=== PATIENT | male | born 1950 | race Caucasian/White ===

== ENCOUNTER 2021-07-01 10:22 | Outpatient (CLI) | payer OTHER, SELFPAY ==
--- NOTE | 2021-07-03 12:14 | W.PFT ---
Date of service: 07/01/21 Time of Service: 22:53 Pulmonary Function Test Result Indications: COPD Total duration of 7 hours 33 minutes TEZ equals 1.9 Baseline SPO2 is 93% Minutes spent under 88% equals 0 Average pulse equals 63 Impression: No significant desaturations. Normal nocturnal oximetry.
== END 2021-07-01 10:23 | disposition home or self-care (01) ==
LOC: RT 10:25
PROVIDERS: PCP Family Medicine; Visit Provider Student in an Organized Health Care Education/Training Program
DX: J96.91 Respiratory failure, unspecified with hypoxia (principal); J43.2 Centrilobular emphysema
CPT/HCPCS: 94762

== ENCOUNTER 2021-12-25 12:57 | Outpatient (CLI) | payer OTHER, SELFPAY ==
[2021-12-25 13:40] LABS: BE 15 mmol/L (-2-3); HCO3 39 mmol/L (22-26); pCO2 55 mmHg (35-45); pH 7.45 (7.35-7.45); pO2 46 mmHg (80-105); sO2 83 % (95-98); tCO2 34 mmol/L (23-27)
[2021-12-25 13:51] LABS: FIO2 36 %; FIO2L 4l L; Site Right Radial
== END 2021-12-25 12:58 | disposition home or self-care (01) ==
LOC: RT 12:58
PROVIDERS: PCP Nurse Practitioner Primary Care; Visit Provider Student in an Organized Health Care Education/Training Program
DX: J43.2 Centrilobular emphysema (principal); J96.91 Respiratory failure, unspecified with hypoxia
CPT/HCPCS: 82805; 36600

== ENCOUNTER 2023-07-10 02:47 | Outpatient (CLI) | payer OTHER, SELFPAY ==
[2023-07-10] MEDS: Levalbuterol HFA 15 GM INH 4 PUFF IH (11:12)
[2023-07-10] MEDS: Inhaler, Assist Device 1 EACH MC (11:12)
--- NOTE | 2023-07-20 11:58 | W.PFT ---
Date of service: 07/10/23 Time of Service: 10:01 Pulmonary Function Test Result Indications: COPD Interpretation Spirometry: There is very severe airflow limitation. There is no significant bronchodilator response. Lung Volumes: There is hyperinflation and air trapping. Diffusion Capacity: Severely reduced diffusion Airway Pressure: Increased airways resistance Impression Very severe obstructive disease with air trapping, increased airways resistance and reduced diffusion, consistent with COPD with emphysema Clinical Correlation therefore is recommended.
== END 2023-07-10 02:48 | disposition home or self-care (01) ==
LOC: RT 02:47
PROVIDERS: PCP Nurse Practitioner Primary Care; Visit Provider Physician Assistant Surgical
DX: J44.9 Chronic obstructive pulmonary disease, unspecified (principal)
CPT/HCPCS: 94060; 94726; 94729

== ENCOUNTER 2023-11-21 17:26 | Emergency (ER) | payer OTHER, SELFPAY ==
[2023-11-21] VITALS (10 sets, daily range): BP systolic 153–177; BP diastolic 75–78; PULSE 101–108; RESP 19–24; TEMP 36.4; O2SAT 91–98
--- NOTE | 2023-11-21 17:45 | DI.RAD_ITS ---
Exam(s) XR FOREARM RT EXAM: XR FOREARM RT CLINICAL HISTORY: Swelling, Dorsal side Hx of Nec Fasc. TECHNIQUE: 2D digital imaging was performed. COMPARISON: No exams were available for comparison FINDINGS: Two views. There is dorsal soft tissue swelling in the proximal forearm. No radiopaque foreign body. No evidence of fracture of the radius and ulna. No swelling of the olecranon bursa. No elbow joint effusion. IMPRESSION: Posterior upper forearm soft tissue swelling. No fractures evident. DATA REPOSITORY: RADIATION DOSE DELIVERED:
--- NOTE | 2023-11-21 17:50 | ED.GENADUL_ITS ---
HPI General Mode of arrival: wheelchair . Date/Time Provider Initiated Documentation: 11/21/23 17:29 . Limitations to Documentation: no limitations . Information obtained by: patient, RN/MD, RN notes reviewed and old records reviewed . HPI Narrative: 73-year-old male with a past medical history of COPD who is on 4 L nasal cannula, necrotizing fasciitis with a fasciotomy to his right forearm approximately 10 years ago presents with some right dorsal forearm swelling which he noticed this morning. He denies any tenderness. It is warm to touch, he does have some dry skin and eczema over the area which she reports that he may have accidentally scratched. He denies any fever or chills. He is slightly tachycardic with a heart rate of 106 upon arrival his temperature is slightly low at 36.4. Related Data Home Medications Medication Instructions Recorded Confirmed inhalational spacing device ##1 09/29/14 08/21/23 (Aerochamber Plus Flow-Vu) ibuprofen 600 mg tablet 600 mg PO QID PRN PRN 04/15/16 08/21/23 Oxygen #1 ea 06/10/21 08/21/23 albuterol sulfate 90 mcg/actuation 2 puff inhalation Q6H PRN 06/10/21 08/21/23 aerosol inhaler hydrochlorothiazide 25 mg tablet 25 mg PO QAM 06/10/21 08/21/23 ipratropium 0.5 mg-albuterol 3 mg 3 ml inhalation Q6H PRN 06/10/21 08/21/23 (2.5 mg base)/3 mL nebulization soln mometasone-formoterol HFA 200 2 puff inhalation BID 12/25/21 08/21/23 mcg-5 mcg/actuation aerosol inhaler (Dulera) albuterol sulfate 2.5 mg/3 mL 2.5 mg inhalation Q6H 04/03/23 08/21/23 (0.083 %) solution for nebulization clobetasol 0.05 % topical cream 1 applic topical DAILY PRN 04/03/23 08/21/23 diltiazem HCl 30 mg tablet 60 mg PO TID 08/21/23 08/21/23 cephalexin 500 mg tablet 500 mg PO BID 7 days #14 tabs 11/21/23 Previous Rx's Medication Instructions Recorded inhalational spacing device ##1 09/29/14 (Aerochamber Plus Flow-Vu) ibuprofen 600 mg tablet 600 mg PO QID PRN PRN 04/15/16 cephalexin 500 mg tablet 500 mg PO BID 7 days #14 tabs 11/21/23 Allergies Allergy/AdvReac Type Severity Reaction Status Date / Time No Known Allergies Allergy Unverified 11/21/23 17:34 General Stated Complaint: GenMedical ATA: 3 Review of Systems All systems reviewed & are unremarkable except as noted in HPI and below Constitutional Constitutional: Denies chills and Denies fever(s) Musculoskeletal Musculoskeletal: Reports as per HPI and Reports other (Arm swelling) Integumentary/Breasts Skin/Breast: Reports as per HPI, Reports rash (Eczema), Reports skin swelling and Reports sores Exam Extrem Right upper extremity: elbow/forearm Details: swelling Location: of the proximal forearm (Volar surface), normal ROM, warmth and distal pulses intact Elbow/forearm/wrist images: 2 1. Swelling noted 5x5cm approximately. Course Vital Signs Vital signs: Vital Signs Temperature 36.4 C L 11/21/23 17:28 Pulse 106 H 11/21/23 17:28 Respiratory Rate 20 11/21/23 17:28 Blood Pressure 153/78 H 11/21/23 17:28 Pulse Oximetry 96 11/21/23 17:28 Temperature 36.4 C L 11/21/23 17:39 Temperature Source Temporal Artery Scan 11/21/23 17:39 Pulse 106 H 11/21/23 17:39 Respiratory Rate 20 11/21/23 17:39 Respiratory Effort Normal 11/21/23 17:39 Respiratory Depth Normal 11/21/23 17:39 Respiratory Pattern Normal 11/21/23 17:39 Blood Pressure 153/78 H 11/21/23 17:39 Blood Pressure Position Sitting 11/21/23 17:39 Pulse Oximetry 96 11/21/23 17:39 Oxygen Delivery Method Room Air 11/21/23 17:39 Oxygen Flow Rate 0 11/21/23 17:39 Medical Decision Making 73-year-old male with a past medical history of COPD who is on 4 L nasal cannula, necrotizing fasciitis with a fasciotomy to his right forearm approximately 10 years ago presents with some right dorsal forearm swelling which he noticed this morning. He denies any tenderness. It is warm to touch, he does have some dry skin and eczema over the area which she reports that he may have accidentally scratched. He denies any fever or chills. He is slightly tachycardic with a heart rate of 106 upon arrival his temperature is slightly low at 36.4. No evidence of leukocytosis, does have slightly elevated neutrophils 8.29, lactate within normal limits. X-ray shows no air does show some soft tissue swelling. Differential diagnosis includes not limited to abscess, hematoma, cellulitis. Due to patient's history of necrotizing fasciitis with fasciotomy I did offer a CT with IV contrast to further eval the area. They declined at this time. I also did discuss with them the option for conservative treatment including Wayne wrap ice pack and empirical antibiotics and watchful waiting. They opted for this option and follow-up with their PCP. Discussed strict return instructions and home care they verbalized understanding. Lab Data Lab results reviewed: Yes I reviewed the patient's lab results. Labs: Laboratory Tests Range/Units 11/21/23 18:05 WBC (4.4-10.8) 10^3/uL 10.61 RBC (4.36-5.78) 10^6/uL 4.76 Hgb (13.5-17.5) g/dL 14.4 Hct (40.0-50.0) % 42.7 MCV (80-95) fL 90 MCH (27.0-33.0) pg 30.3 MCHC (32.0-36.0) % 33.7 RDW (11.8-14.1) % 12.1 Plt Count (130-400) 10^3/uL 264 MPV (8.0-11.0) fL 9.9 Immature Gran % 0.3 Neutrophils % 78.0 Lymphocytes % 10.5 Monocytes % 8.9 Eosinophils % 1.9 Basophils % 0.4 Nucleated RBC % (0.0-0.3) % 0.0 Absolute Neutrophils (1.2-6.7) 10^3/uL 8.29 H Absolute Lymphocytes (1.2-3.4) 10^3/uL 1.11 L Absolute Monocytes (0.1-0.8) 10^3/uL 0.94 H Absolute Eosinophils (0.0-0.7) 10^3/uL 0.20 Absolute Basophils (0.0-0.2) 10^3/uL 0.04 VBG Lactate (0.6-1.4) mmol/L 1.1 Sodium (136-145) mmol/L 138 Potassium (3.5-5.1) mmol/L 3.7 Chloride (98-107) mmol/L 96 L Carbon Dioxide (21.0-32.0) mmol/L 37.3 H Anion Gap (3-11) mmol/L 4.7 BUN (7-18) mg/dL 17 Creatinine (0.70-1.30) mg/dL 1.1 Est GFR (CKD-EPI 2020) (mL/min/1.73m2) 71.32 Glucose (74-106) mg/dL 110 H Calcium (8.5-10.1) mg/dL 9.5 Magnesium (1.8-2.4) mg/dL 1.9 Total Bilirubin (0.2-1.0) mg/dL 0.5 AST (15-37) U/L 16 ALT (16-63) U/L 20 Alkaline Phosphatase (46-116) U/L 119 H Total Protein (6.4-8.2) g/dL 9.2 H Albumin (3.4-5.0) g/dL 4.0 Quality:SDOH Health Related Social Needs: 2 No Data to Display PFSH All Active Problems (Updated 11/21/23 @ 18:59 by Shruthi Singleton NP) Cellulitis of forearm, right (Acute) Swelling of soft tissue of forearm (Acute) Deviated septum (Acute) Respiratory failure with hypoxia (Acute) Pulmonary nodules (Acute) COPD (chronic obstructive pulmonary disease) (Chronic) Alcohol abuse, uncomplicated (Acute) Tinnitus, bilateral (Acute) Sensorineural hearing loss (SNHL), bilateral (Acute) Intrinsic (allergic) eczema (Acute) Essential hypertension (Acute) Spontaneous pneumothorax (Acute) Medical History Solitary pulmonary nodule Social History Smoking/Tobacco Use Status: Former Tobacco Use Quit Date: 03/19/16 Smoking risk assessment performed?: Yes Alcohol Intake: former Year quit: 2016 Drug use: Never Substance use type: does not use Current gender identity: male Additional Social history: History of pulm nodule -quit smokoing 2016- annual CT until at least 76- last was in 06/2020 Discharge Plan Disposition Patient Disposition: Home Condition: Stable Discharge Details Clinical Impression: Swelling of soft tissue of forearm, Cellulitis of forearm, right Primary Care Provider: Radha Smith ED Provider: Shruthi Singleton Home Meds and New Rx's Prescriptions: New cephalexin 500 mg tablet 500 mg PO BID 7 Days Qty: 14 0RF Continued Dulera 200-5 mcg/actuation HFA aerosol inhaler 2 puff inhalation BID ipratropium-albuterol 0.5 mg-3 mg(2.5 mg base)/3 mL solution for nebulization 3 ml inhalation Q6H PRN albuterol sulfate 90 mcg/actuation HFA aerosol inhaler 2 puff inhalation Q6H PRN hydrochlorothiazide 25 mg tablet 25 mg PO QAM (DME) Oxygen Tank See Rx Instructions .ROUTE .MEDSUPPLY Qty: 1 Rx Instructions: As directed,On cont O2 at 3L - up to 4L when on a mask. albuterol sulfate 2.5 mg /3 mL (0.083 %) solution for nebulization 2.5 mg inhalation Q6H clobetasol 0.05 % cream 1 applic topical DAILY PRN diltiazem HCl 30 mg tablet 60 mg PO TID (DME) Aerochamber Plus Flow-Vu 1 EACH spacer 1 ea Miscellaneous DIRECTED Qty: 1 0RF ibuprofen 600 MG tablet 600 mg PO QID PRN PRN0RF Discharge Instructions Instructions: Cellulitis (ED) Additional Instructions: This could be a large bruise but with your history, we will treat you with antibiotics to prevent infection. You may apply an Wayne wrap daily for the next few days ice it up to 3 times daily. Continue to observe the area return for any worsening swelling, redness, red streaks up your arm, body aches fever chills or any concerns. Please take the antibiotic twice a day with yogurt or probiotic as directed. Follow up with primary care provider in 3-5 days. Return to ED sooner if any worsening or concerns. Increase oral fluids. Referrals: Krystal Lindsey [NURSE PRACTITIONER] - 3 days Discharge Data Discharge Date/Time-TO BE ENTERED AT DEPARTURE: 11/21/23 19:11
[2023-11-21 18:10] LABS: Lactate 1.1 mmol/L (0.6-1.4)
[2023-11-21 18:13] LABS: Abs Immature Grans 0.03 10^3/uL (0.0-0.06); Absolute Basophil Count 0.04 10^3/uL (0.0-0.2); Absolute Lymphocyte Count 1.11 10^3/uL (1.2-3.4); Absolute Monocyte Count 0.94 10^3/uL (0.1-0.8); Absolute Neutrophil Count 8.29 10^3/uL (1.2-6.7); Basophils % 0.4; Eosinophils % 1.9; HCT 42.7 % (40.0-50.0); HGB 14.4 g/dL (13.5-17.5); Immature Grans % 0.3; Lymphocytes % 10.5; MCH 30.3 pg (27.0-33.0); MCHC 33.7 % (32.0-36.0); MCV 90 fL (80-95); MPV 9.9 fL (8.0-11.0); Monocytes % 8.9; Platelet Count 264 10^3/uL (130-400); RBC 4.76 10^6/uL (4.36-5.78); RDW 12.1 % (11.8-14.1); RDW-SD 40.3 fL; WBC 10.61 10^3/uL (4.4-10.8)
[2023-11-21 18:28] LABS: ALT 20 U/L (16-63); AST 16 U/L (15-37); Alkaline Phosphatase 119 U/L (46-116); Anion Gap 4.7 mmol/L (3-11); BUN 17 mg/dL (7-18); Bilirubin, Total 0.5 mg/dL (0.2-1.0); CO2 37.3 mmol/L (21.0-32.0); CREATININE 1.1 mg/dL (0.70-1.30); Calcium 9.5 mg/dL (8.5-10.1); Chloride 96 mmol/L (98-107); Estimated GFR 71.32 (mL/min/1.73m2); Glucose 110 mg/dL (74-106); Magnesium 1.9 mg/dL (1.8-2.4); Potassium 3.7 mmol/L (3.5-5.1); Sodium 138 mmol/L (136-145); Total Protein 9.2 g/dL (6.4-8.2)
[2023-11-21] MEDS: Cephalexin 500 MG CAP, 2 CAPS/BTL PO (19:10)
[2023-11-21] MEDS: Cephalexin 500 MG CAP PO (19:10)
== END 2023-11-21 19:11 | disposition home or self-care (01) ==
PROVIDERS: Emergency Provider Registered Nurse Emergency; PCP Nurse Practitioner Adult Health
DX: L03.113 Cellulitis of right upper limb (principal); J44.9 Chronic obstructive pulmonary disease, unspecified; Z87.891 Personal history of nicotine dependence; Z99.81 Dependence on supplemental oxygen
CPT/HCPCS: 80053; 99284; 73090; 83605; 83735; 85025; 99283

== ENCOUNTER 2025-02-18 14:42 | Inpatient (IN) | payer OTHER, MEDICARE, SELFPAY ==
[2025-02-18] VITALS (25 sets, daily range): BP systolic 84–170; BP diastolic 72–93; PULSE 107–123; RESP 10–33; TEMP 36.2–36.9; O2SAT 78–92
--- NOTE | 2025-02-18 14:45 | DI.RAD_ITS ---
Exam(s) XR PELVIS AP XR FEMUR RT EXAM: XR FEMUR RT CLINICAL HISTORY: right hip pain. TECHNIQUE: 2D digital imaging was performed. AP and lateral views of the femur. AP view of the pel vis COMPARISON: CR XR PELVIS AP from 02/18/2025 FINDINGS: BONES: Subcapital fracture of the right femur. There is some impaction and several small comminuted fragments. The remainder of the pelvis as well as distal femur appear intact. No bony destructive l esion is seen. JOINTS: Visualized portion of knee and hip joints are unremarkable. SOFT TISSUE: Normal. IMPRESSION: Subcapital fracture of the right femur with some impaction and few comminuted fragments. DATA REPOSITORY: RADIATION DOSE DELIVERED:
--- NOTE | 2025-02-18 14:55 | W.ED.GENAD ---
Discharge Plan Disposition Patient Disposition: Admit to [facility] Condition: Stable Discharge Details Chief Complaint: Fall/Non TraumaCriteria Clinical Impression: Fracture of right hip Admit Date/Time: 02/18/25 18:29 Admit Provider: Umm Reed Attending Provider: Umm Reed Primary Care Provider: Umm Reed ED Provider: Yogesh Vega Mode of arrival: EMS. Date/Time Provider Initiated Documentation: 02/18/25 14:46. Limitations to Documentation: no limitations. Information obtained by: patient. History of Present Illness 74 year old M presents to the emergency department with the chief complaint of right hip pain, described as moderate, Quality is described as aching, Patient reports no radiation. Patient started experiencing this hour(s) (1) and it has been constant. No relieving factors improve symptom(s), No exacerbating factors reported . Patient notes no other symptoms.. Patient did receive the following treatments prior to arrival, none Related Data Home Medications ?Medication ?Instructions ?Recorded ?Confirmed inhalational spacing device ##1 09/29/14 02/18/25 (Aerochamber Plus Flow-Vu) Oxygen #1 ea 06/10/21 02/18/25 albuterol sulfate 90 mcg/actuation 2 puff inhalation Q6H PRN 06/10/21 02/18/25 aerosol inhaler hydrochlorothiazide 25 mg tablet 25 mg PO QAM 06/10/21 02/18/25 ipratropium 0.5 mg-albuterol 3 mg 3 ml inhalation Q6H PRN 06/10/21 02/18/25 (2.5 mg base)/3 mL nebulization soln albuterol sulfate 2.5 mg/3 mL 2.5 mg inhalation Q6H 04/03/23 02/18/25 (0.083 %) solution for nebulization clobetasol 0.05 % topical cream 1 applic topical DAILY PRN 04/03/23 02/18/25 diltiazem HCl 30 mg tablet 60 mg PO TID 08/21/23 02/18/25 mometasone-formoterol HFA 200 2 puff inhalation BID #13 grams 11/25/24 02/18/25 mcg-5 mcg/actuation aerosol inhaler (Dulera) tiotropium bromide 2.5 2 inh inhalation DAILY #4 grams 11/25/24 02/18/25 mcg/actuation mist for inhalation (Spiriva Respimat) citalopram 40 mg tablet 40 mg PO ONCE #30 tabs 01/31/25 02/18/25 lorazepam 1 mg tablet 1 mg PO Q4H PRN anxiety, dyspnea, 01/31/25 02/18/25 nausea #30 tabs morphine concentrate 100 mg/5 mL See Rx Instructions PO Q1H PRN #30 01/31/25 02/18/25 (20 mg/mL) oral solution mL polyethylene glycol 3350 17 17 g PO DAILY #476 grams 01/31/25 02/18/25 gram/dose oral powder (Miralax) sennosides 8.6 mg tablet (senna) 8.6 mg PO BID #60 tabs 01/31/25 02/18/25 Previous Rx's ?Medication ?Instructions ?Recorded inhalational spacing device ##1 09/29/14 (Aerochamber Plus Flow-Vu) mometasone-formoterol HFA 200 2 puff inhalation BID #13 grams 11/25/24 mcg-5 mcg/actuation aerosol inhaler (Dulera) tiotropium bromide 2.5 2 inh inhalation DAILY #4 grams 11/25/24 mcg/actuation mist for inhalation (Spiriva Respimat) citalopram 40 mg tablet 40 mg PO ONCE #30 tabs 01/31/25 lorazepam 1 mg tablet 1 mg PO Q4H PRN anxiety, dyspnea, 01/31/25 nausea #30 tabs morphine concentrate 100 mg/5 mL See Rx Instructions PO Q1H PRN #30 01/31/25 (20 mg/mL) oral solution mL polyethylene glycol 3350 17 17 g PO DAILY #476 grams 01/31/25 gram/dose oral powder (Miralax) sennosides 8.6 mg tablet (senna) 8.6 mg PO BID #60 tabs 01/31/25 Allergies Allergy/AdvReac Type Severity Reaction Status Date / Time No Known Allergies Allergy Unverified 11/21/23 17:34 General Stated Complaint: Fall/Non TraumaCriteria ATA: 3 Review of Systems All systems reviewed & are unremarkable except as noted in HPI and below Constitutional Constitutional: Denies chills, Denies fever(s) and Denies weakness Cardiovascular Cardiovascular: Denies chest pain Respiratory Respiratory: Denies cough Gastrointestinal Gastrointestinal: Denies abdominal pain, Denies nausea and Denies vomiting Neurologic Neurologic: Denies weakness Psychiatric Psychiatric: Denies depression Exam Const Orientation: alert [facility] Head: normal to inspection Ears: external ears normal General nose exam: external nose normal Mouth: moist mucous membranes Eyes General: appearance normal, both eyes and all related structures Neck Neck: normal visual inspection Resp Effort & Inspection: normal respiratory effort and able to speak in complete sentences Cardio Rate: regular rate Skin General skin exam: no rashes or lesions noted Neuro General: patient alert and patient oriented x3 Extrem General: capillary refill normal Psych Mental Status: mental status grossly normal Course Vital Signs Vital signs: Vital Signs Temperature 36.9 C 02/18/25 14:42 Pulse 123 H 02/18/25 14:42 Respiratory Rate 33 H 02/18/25 14:42 Blood Pressure 170/93 H 02/18/25 14:42 Pulse Oximetry 88 L 02/18/25 14:42 Temperature 36.9 C 02/18/25 14:42 Temperature Source Oral 02/18/25 14:42 Pulse 123 H 02/18/25 14:42 Respiratory Rate 33 H 02/18/25 14:42 Blood Pressure 170/93 H 02/18/25 14:42 Blood Pressure Position Supine 02/18/25 14:42 Pulse Oximetry 88 L 02/18/25 14:42 Oxygen Delivery Method Nasal Cannula 02/18/25 14:42 Oxygen Flow Rate 2 02/18/25 14:42 Pain Level 2 02/18/25 14:42 Medical Decision Making 74-year-old male who is on hospice for COPD comes in after he states he got dizzy and fell over landing on his right hip. He denies any loss of consciousness and denies any chest pain, he is on baseline oxygen and denies any increased work of breathing from baseline. He localizes the pain to the right hip. He has tenderness in this area and has his hip flexed. He has intact distal sensation and cap refill. I discussed with him goals of care and his main goal is to be comfortable but he would also like to have x-rays done to evaluate for possible fractures. Will order Dilaudid and Toradol pelvis and right femur x-ray and reassess. X-ray confirms right hip fracture. Patient is on hospice, I discussed results with him and at this time he currently does not want to have any surgical intervention. Their house is not set up for his current injury as they do not have a hospital bed. I discussed the case with on-call hospice provider Dr. Reed who plans to admit for pain control until hospice services can provide adequate resources for further living situation. Differential Diagnosis Differential Diagnosis: Fracture, contusion Medical Records Medical records reviewed: Yes I reviewed the patient's medical records. Quality:SDOH Health Related Social Needs: No Data to Display PFSH All Active Problems (Updated 02/18/25 @ 21:20 by Yogesh Vega MD) Fracture of right hip (Acute) Pain (Acute) Closed right hip fracture (Acute) impacted comminuted right femoral neck fracture Goals of care, counseling/discussion (Acute) Dyspnea on minimal exertion (Acute) Oxygen dependent (Acute) Hospice care (Acute) Deviated septum (Acute) Respiratory failure with hypoxia (Chronic) Pulmonary nodules (Acute) COPD (chronic obstructive pulmonary disease) (Chronic) Tinnitus, bilateral (Acute) Sensorineural hearing loss (SNHL), bilateral (Acute) Intrinsic (allergic) eczema (Acute) Essential hypertension (Acute) Spontaneous pneumothorax (Acute) Medical History Solitary pulmonary nodule Social History Smoking/Tobacco Use Status: Former Tobacco Use Quit Date: 03/19/16 Tobacco: How many years used: 45 Second Hand Exposure: Yes (not currently, history of) Smoking risk assessment performed?: Yes Alcohol Intake: current Alcohol Intake frequency: 0-2 drinks per day Alcohol type: wine Drug use: Never Substance use type: does not use Caregiver/Support person: Yes Household members: significant other Housing: house Number of Children: 3 Communication Needs: Hard of Hearing Do you need help understanding health information?: Rarely 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 Pets and animals: No (favorite cat recently (winter 2024)) Do you think of yourself as: straight/heterosexual Current gender identity: male What is your relationship status?: living with partner Panel score (0-1 are the most socially isolated patients): 1 What type of physical activity do you participate in: none Special rosie needs: No Agree to transfusion: No Seatbelt use: always Working smoke detector in home: Yes Fire extinguisher in home: Yes Do you feel safe at home: Yes Do you feel safe in your relationship?: Yes Additional Social history: Lorne and Roberto, his SO, have been together for decades. They have children together. She works out of the home most of the time. Most of the time, Lorne stays on the second floor. he goes down approx once per 5 days to have his hair washed. He gets very dyspneic with any activity. He cannot walk from his bed to the bathroom without stopping to rest. He struggles to get back up the stairs due to his dyspnea, even with oxygen in place. He and Roberto are considering getting ; he is afraid of how it will affect his [employer] benefits if they . He is committed to her and he to him. PAWSS Have you Been Recently Intoxicated or Drunk Within the Last 30 days?: Yes Have you Ever Experienced Previous Episodes of Alcohol Withdrawal?: Yes Have you ever Experienced Withdrawal Seizures?: No Have you ever Experienced Delirium Tremens(DT)s?: No Have you ever undergone Alcohol Rehabilitation Treatment (i.e, inpt ot outpatient treatment programs)?: No Have you ever Experienced Blackouts?: No Have you ever Combined Alcohol with other Downers within the last 90 days?: Yes Have you ever Combined Alcohol with any other Substance of Abuse during the last 90 days?: Yes Positive Blood Alcohol level on Presentation? [PCS.BAL]: No Evidence of Increased Autonomic Activity (i.e. HR>120, tremor, sweating, agitation, nausea)?: Yes Result: 5
[2025-02-18] MEDS: HYDROmorphone 2 MG/ML SYR IM ×2 (15:00→15:40)
[2025-02-18] MEDS: Ketorolac 15 MG/ML VIAL IM (15:01)
--- NOTE | 2025-02-18 15:51 | W.PCEDHO ---
Registration Status: Primary Language: Preferred Language: ED Information & Data Chief Complaint Fall/Non TraumaCriteria 02/18/25 14:58 Triage Note Pt had a fall today at home 02/18/25 14:42 around 1345, complaining of right hip pain. Reports 2/10 pain but states if he weren 't in pain I'd be living the life. Pt is ends stage COPD on hospice. EMS reported family reached out to hospice who directed them to call 911. Family administered 10 mg oral morphine before EMS transported. Was on the floor approx 30 min. Medical / Surgical History (Last Reviewed 11/21/23 @ 17:58 by Shruthi Singleton NP) Solitary pulmonary nodule Most Recent Vital Signs Temperature 36.9 C 02/18/25 14:42 Temperature Source Oral 02/18/25 14:42 Pulse 123 H 02/18/25 14:42 Respiratory Rate 33 H 02/18/25 14:42 Blood Pressure 170/93 H 02/18/25 14:42 Blood Pressure Position Supine 02/18/25 14:42 Pulse Oximetry 88 L 02/18/25 14:42 Oxygen Delivery Method Nasal Cannula 02/18/25 14:42 Oxygen Flow Rate 2 02/18/25 14:42 Pain Level 7 02/18/25 15:40 Allergies No Known Allergies Allergy (Unverified 11/21/23 17:34) Intake and Output - 24 Hour Total 02/18/25 14:37 thru 02/18/25 14:42 Weight 83.5 kg Falls Risk Assessment History of Falls Previous History 02/18/25 14:50 Contributing Factors Unstable,Impairments 02/18/25 14:50 Ambulatory Aids Independent 02/18/25 14:50 Tubes/Lines None 02/18/25 14:50 Gait Evaluation No gait disturbance 02/18/25 14:50 Cognition No cognitive impairment 02/18/25 14:50 Fall Total Score 21 02/18/25 14:50 Level of Risk Standard/Low Risk 02/18/25 14:50 v v v v v v v v v Sending and/or Receiving Nurses: Please use comment section below to note any information pertinent to the patient hand-off not included above. Information / Comments: Pt came to ED with c/o SOB, tachypnea, and general ill feeling. Pt is a/o x 4 but slow to answer questions. Poor historian to medications questions. Pt has chronic afib and was RVR in ED. Pt also noted to have elevated d dimer. Pt has crackles throughout sating at 90% on 4L O2. Respirations were 44 when he came to floor but now are 32-34/min. Pt also c/o LLQ pain for past few days. Chest xray shows community acquired PNA. febrile to 100.1 in ED and Tylenol given. Pt has a #18 to right AC. Pt being admitted for IV treatment and monitoring. Will continue with plan of care. Report received from: [facility] ED
--- NOTE | 2025-02-18 16:43 | DI.VRAD_ITS ---
PROCEDURE INFORMATION: Exam: XR Pelvis Exam date and time: 02/18/2025 3:36 PM Age: 74 years old Clinical indication: Right hip pain TECHNIQUE: Imaging protocol: Radiologic exam of the pelvis. Views: 1 or 2 view. COMPARISON: No relevant prior studies available. FINDINGS: Bones/joints: There is a comminuted fracture of the right femoral neck noted. The remaining pelvic ring appears intact. Soft tissues: Unremarkable. IMPRESSION: Comminuted right femoral neck fracture. PROCEDURE INFORMATION: Exam: XR Right Femur Exam date and time: 02/18/2025 3:36 PM Age: 74 years old Clinical indication: Right hip pain TECHNIQUE: Imaging protocol: Radiologic exam of the right femur. Views: 2 views. COMPARISON: CR XR PELVIS AP 02/18/2025 3:34 PM FINDINGS: Bones/joints: There is an impacted comminuted fracture of the right femoral neck. The fracture lines do not extend to the joint space. No evidence of joint dislocation. Soft tissues: Unremarkable. IMPRESSION: Impacted comminuted fracture of the right femoral neck. No joint dislocation. Dictated and Authenticated by: Nyla Damon MD. Orderin Gary Zuñiga MD
[2025-02-18] MEDS: HYDROmorphone 2 MG/ML SYR 1 MG IVP (17:49)
--- NOTE | 2025-02-18 18:46 | W.PM.HP.N ---
Date of service: 02/18/25 Time of Service: 18:47 Assessment and Plan Assessment and plan (1) Closed right hip fracture: Status: Acute Assessment and plan: doesn't want surgery at this point will readdress his decision in the am as he was under the influence of ender when I saw him family meeting scheduled for 11 am if he chooses to go home without surgery, he will need ongoing aggressive pain management (2) Dyspnea on minimal exertion: Status: Acute Assessment and plan: chronic, severe COPD continue oxygen continue home copd meds (3) Oxygen dependent: Status: Acute Assessment and plan: desats even when wearing oxygen if exerts himself minimally (4) Hospice care: Status: Acute Assessment and plan: currently on hospice GIP/symptom management plan for now is to send him home on Thursday, after we have 2 days of adequate pain control for an acute hip fracture plan may change if Lorne changes his mind tomorrow am (5) COPD (chronic obstructive pulmonary disease): Status: Chronic (6) Goals of care, counseling/discussion: Status: Acute (7) Respiratory failure with hypoxia: Status: Chronic Assessment and plan: Does not want intubation. (8) Pain: Status: Acute Assessment and plan: Starting on 0.4 mg hydromorphone continuous with same dose bolus q 15 min. History of Present Illness History of Present Illness Chief Complaint: fall at home, hip fracture, COPD Narrative: Lorne is a 74 yo man on hospice for end-stage COPD. He fell at home this afternoon and fractured his right hip. Per imaging, he has an impacted comminuted right femoral neck fracture. I reviewed his images with the ER doctor, Ricci Vega. Lorne told Dr Vega that he did not want surgery. His lung function is so poor that he would have [place] [facility] [place], if he desired it. Lorne has been on prednisone for his COPD, so likely has some degree of osteoporosis from this. He also is very inactive due to his end-stage COPD, so he is unable to do any bone strengthening exercises. He gets breathless with minimal exertion. He lives on the second floor of his home, coming down every 5 days for a shampoo, but spending all the rest of his time upstairs. He does not have a hospital bed at home. When I arrived to admit Lorne, he repeated his desire to forgo surgery. I asked him why and he said he thought he could heal his fracture on his own. He had received 1 mg IV hydromorphone just prior to my seeing him. I did not feel we could have a useful and fully informed conversation at this time. He usually has capacity. His group home significant other, Roberto, was not present during my exam/visit. At this point in time, given his preferences for no surgery and need for aggressive pain control, we will admit him for hospice SYMPTOM MANAGEMENT. He will be on a hydromorphone IV infusion. His home COPD medications will be continued. He is on chronic opioids at home. He will need bowel meds too. Note that his abdomen looked more distended than usual and he had visual stool in his colon on xray. Review of Systems Unobtainable due to mental status (sedated from pain meds) [facility] All Active Problems (Updated 02/18/25 @ 19:34 by Umm Reed MD) Pain (Acute) Closed right hip fracture (Acute) impacted comminuted right femoral neck fracture Goals of care, counseling/discussion (Acute) Dyspnea on minimal exertion (Acute) Oxygen dependent (Acute) Hospice care (Acute) Deviated septum (Acute) Respiratory failure with hypoxia (Chronic) Pulmonary nodules (Acute) COPD (chronic obstructive pulmonary disease) (Chronic) Tinnitus, bilateral (Acute) Sensorineural hearing loss (SNHL), bilateral (Acute) Intrinsic (allergic) eczema (Acute) Essential hypertension (Acute) Spontaneous pneumothorax (Acute) Medical History Solitary pulmonary nodule Social History Smoking/Tobacco Use Status: Former Tobacco Use Quit Date: 03/19/16 Tobacco: How many years used: 45 Second Hand Exposure: Yes (not currently, history of) Smoking risk assessment performed?: Yes Alcohol Intake: current Alcohol Intake frequency: 0-2 drinks per day Alcohol type: wine Drug use: Never Substance use type: does not use Caregiver/Support person: Yes Household members: significant other Housing: house Number of Children: 3 Communication Needs: Hard of Hearing Do you need help understanding health information?: Rarely 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 Pets and animals: No (favorite cat recently (winter 2024)) Do you think of yourself as: straight/heterosexual Current gender identity: male What is your relationship status?: living with partner Panel score (0-1 are the most socially isolated patients): 1 What type of physical activity do you participate in: none Special rosie needs: No Agree to transfusion: No Seatbelt use: always Working smoke detector in home: Yes Fire extinguisher in home: Yes Do you feel safe at home: Yes Do you feel safe in your relationship?: Yes Additional Social history: Lorne and Roberto, his SO, have been together for decades. They have children together. She works out of the home most of the time. Most of the time, Lorne stays on the second floor. he goes down approx once per 5 days to have his hair washed. He gets very dyspneic with any activity. He cannot walk from his bed to the bathroom without stopping to rest. He struggles to get back up the stairs due to his dyspnea, even with oxygen in place. He and Roberto are considering getting ; he is afraid of how it will affect his VA benefits if they . He is committed to her and he to him. Meds Allergies and Home Medications Allergies Allergy/AdvReac Type Severity Reaction Status Date / Time No Known Allergies Allergy Unverified 11/21/23 17:34 Home Medications ?Medication ?Instructions ?Recorded ?Confirmed ?Type inhalational spacing device ##1 09/29/14 02/18/25 Rx (Aerochamber Plus Flow-Vu) Oxygen #1 ea 06/10/21 02/18/25 History albuterol sulfate 90 mcg/actuation 2 puff inhalation Q6H PRN 06/10/21 02/18/25 History aerosol inhaler hydrochlorothiazide 25 mg tablet 25 mg PO QAM 06/10/21 02/18/25 History ipratropium 0.5 mg-albuterol 3 mg 3 ml inhalation Q6H PRN 06/10/21 02/18/25 History (2.5 mg base)/3 mL nebulization soln albuterol sulfate 2.5 mg/3 mL 2.5 mg inhalation Q6H 04/03/23 02/18/25 History (0.083 %) solution for nebulization clobetasol 0.05 % topical cream 1 applic topical DAILY PRN 04/03/23 02/18/25 History diltiazem HCl 30 mg tablet 60 mg PO TID 08/21/23 02/18/25 History mometasone-formoterol HFA 200 2 puff inhalation BID #13 grams 11/25/24 02/18/25 Rx mcg-5 mcg/actuation aerosol inhaler (Dulera) tiotropium bromide 2.5 2 inh inhalation DAILY #4 grams 11/25/24 02/18/25 Rx mcg/actuation mist for inhalation (Spiriva Respimat) citalopram 40 mg tablet 40 mg PO ONCE #30 tabs 01/31/25 02/18/25 Rx lorazepam 1 mg tablet 1 mg PO Q4H PRN anxiety, dyspnea, 01/31/25 02/18/25 Rx nausea #30 tabs morphine concentrate 100 mg/5 mL See Rx Instructions PO Q1H PRN #30 01/31/25 02/18/25 Rx (20 mg/mL) oral solution mL polyethylene glycol 3350 17 17 g PO DAILY #476 grams 01/31/25 02/18/25 Rx gram/dose oral powder (Miralax) sennosides 8.6 mg tablet (senna) 8.6 mg PO BID #60 tabs 01/31/25 02/18/25 Rx Exam Narrative Exam Narrative: Lying on his back, wearing his oxygen, barrel-chested due to his copd, intermittently alert, drifting off. VS reviewed, note that he desatted to mid 80s with talking eyes anicteric heent hearing grossly intact. dry but not parched mm neck no lad or jvd lungs distant throughout all barajas cv distant, sounds regular, normal rate abd firm, hypoactive bowel sounds, reducible umbilical hernia, no scars gu not examined ext + clubbing of fingernails, feet are cool to touch, loss of muscle mass in legs neuro not as clear as his baseline due to drug effect, moving his extremities, no facial droop, does agree to admission and to pain pump, right hand shaking, says it's normal skin no bruises or abrasions noted psych denied anxiety Results Imaging Abdominal x-ray: image reviewed (hip and lower abdomen) Last Vital Signs Temp 98.4 F 02/18/25 14:42 Pulse 116 H 02/18/25 17:40 Resp 13 02/18/25 17:50 BP 122/89 02/18/25 15:18 Pulse Ox 89 L 02/18/25 17:40 PAWSS Have you Been Recently Intoxicated or Drunk Within the Last 30 days?: Yes Have you Ever Experienced Previous Episodes of Alcohol Withdrawal?: Yes Have you ever Experienced Withdrawal Seizures?: No Have you ever Experienced Delirium Tremens(DT)s?: No Have you ever undergone Alcohol Rehabilitation Treatment (i.e, inpt ot outpatient treatment programs)?: No Have you ever Experienced Blackouts?: No Have you ever Combined Alcohol with other Downers within the last 90 days?: Yes Have you ever Combined Alcohol with any other Substance of Abuse during the last 90 days?: Yes Positive Blood Alcohol level on Presentation? [PCS.BAL]: No Evidence of Increased Autonomic Activity (i.e. HR>120, tremor, sweating, agitation, nausea)?: Yes Result: 5 Time Spent Time spent with Patient: 40-54 minutes Time was spent: preparing to see the patient(eg.review tests), obtaining and/or reviewing separately otained hiistory, ordering medications,tests, procedures, referring, communicating with other health direct care worker, indepentently interpreting results, counseling the patient and care coordination
[2025-02-18] MEDS: HYDROmorphone 100 MG in Normal Saline 240 ML IV_INF (21:20)
[2025-02-18] MEDS: dilTIAZem 60 MG TAB PO (23:25)
[2025-02-18] MEDS: Senna TAB 1 TAB PO (23:25)
[2025-02-18] MEDS: Citalopram 20 MG TAB 40 MG PO (23:25)
[2025-02-19] VITALS (7 sets, daily range): BP systolic 118–130; BP diastolic 74–90; PULSE 99–112; RESP 18–22; TEMP 36.5–37.6; O2SAT 84–94
[2025-02-19] MEDS: Ketorolac 15 MG/ML VIAL IVP ×2 (08:03→15:07)
[2025-02-19] MEDS: hydroCHLOROthiazide 25 MG TAB PO (08:03)
[2025-02-19] MEDS: Senna TAB 1 TAB PO ×2 (08:03→21:59)
[2025-02-19] MEDS: Polyethylene Glycol 3350 17 GM PACKET PO (08:03)
[2025-02-19] MEDS: dilTIAZem 60 MG TAB PO ×3 (08:03→21:59)
[2025-02-19] MEDS: Normal Saline Flush 10 ML SYR IVP ×2 (08:04)
[2025-02-19] MEDS: Budesonide/Formoterol 160/4.5 6 GM 60 PUFF INH IH ×2 (08:10→19:50)
[2025-02-19] MEDS: Tiotropium Bromide-Respimat 10 PUFF INH 2 PUFF IH (08:11)
[2025-02-19] MEDS: LORazepam 1 MG TAB PO (08:17)
--- NOTE | 2025-02-19 08:17 | INITIAL_ITS ---
Date of service: 02/19/25 Time of Service: 08:17 Care Management Initial Assmt Initial Assessment Reason for Hospitalization: Femoral neck fracture Functional Status/Living Situation Patient Presentation: Lorne was lying in bed and appeared to be sleeping comfortably when CM attempted to meet with him; therefor elected not to wake him. Lorne fell and fractured his right hip yesterday and his pain is being medically managed by Dr. Reed as he is currently on Hospice for end stage COPD. Lorne has chosen to move forward with treatment which is likely to involve a hip replacement. Surgical intervention may need to be done at a tertiary facility if felt to be a high risk surgical candidate; Ortho consult pending. CM will follow. Town of Residence: [facility] Resides with: Spouse (Outbound Sales Advisor Lori) Significant Other/Family: Local Natural Supports: Supportive family Employment Status: Employed Instrumental Activities of Daily Living (ADLs): Independent Medications Medication Management: No Issues/Barriers identified Physical Functioning/Mobility Assistive Device: N/A Advance Directives Advance Directives: Do you have an Advance Directive: N 01/03/25 08:40 AD On File at [facility]: N 01/03/25 08:40 Date Asked 02/18/25 02/18/25 14:52 AD Date Reviewed COLST On File at [facility] No 01/03/25 08:40 COLST Date Scanned Code Status Resuscitation Status DNR/DNI Insurance Coverage/Financial Issues Insurance: [facility] - [id number] Care Team Visit Care Team Role Provider Type Yogesh Vega MD Emergency Provider [facility] STAFF PHYSICIAN Umm Reed MD Admit Provider [facility] STAFF PHYSICIAN Attending Provider Primary Care Provider Discharge Potential Discharge Needs: Consult (Ortho consult) and Other (Hospice services) Anticipated Barriers to Discharge: Medical Status Patient/Family Education Needs: Review discharge instructions, discuss Ask Me Three Transportation: Other (Depending on mobility) Plan: Lorne is on Hospice services and is admitted for pain management and surgical intervention s/p hip fracture. Ortho is consulted, waiting to find out if surgery can be done at [facility] or if transfer to a tertiary hospital is needed. CM will follow. Social Determinants of Health Screening Social Determinants of health last assessed in clinic: 02/19/25 Will the Patient Participate in the Screening?: Yes Do you worry about having a steady place to live?: no Problems where you live: no known problems In the past 12 months, have you had to go without electric, gas, oil or water in your home?: no 1. Within the past 12 months, we worried whether our food would run out before we got money to buy more.: Never true 2. Within the past 12 months, the food we bought just didn't last and we didn't have money to get more.: Never true Has lack of transportation kept you from medical appointments or from doing things needed for daily living?: no Has anyone in your life made you feel unsafe or unsupported?: no How hard is it for you to pay for the very basics like food, housing, medical care, and heating? Would you say it is:: Not hard at all Do you want help finding or keeping work or a job?: I do not need or want help If for any reason you need help with day-to-day activities such as bathing, preparing meals, shopping, managing finances, etc., do you get the help you need?: I don?t need any help How often do you feel lonely or isolated from those around you?: Never Do you speak a language other than French at home?: No Does the patient want assistance with any of the above?: No PFSH All Active Problems (Updated 02/18/25 @ 21:20 by Yogesh Vega MD) Ex-smoker for more than 1 year (Acute) Heavy alcohol consumption (Acute) Fracture of right hip (Acute) Pain (Acute) Closed right hip fracture (Acute) impacted comminuted right femoral neck fracture Goals of care, counseling/discussion (Acute) Dyspnea on minimal exertion (Acute) Oxygen dependent (Acute) Hospice care (Acute) Deviated septum (Acute) Respiratory failure with hypoxia (Chronic) Pulmonary nodules (Acute) COPD (chronic obstructive pulmonary disease) (Chronic) Tinnitus, bilateral (Acute) Sensorineural hearing loss (SNHL), bilateral (Acute) Intrinsic (allergic) eczema (Acute) Essential hypertension (Acute) Spontaneous pneumothorax (Acute) Medical History Solitary pulmonary nodule Social History Smoking/Tobacco Use Status: Former Tobacco Use Quit Date: 03/19/16 Tobacco: How many years used: 45 Second Hand Exposure: Yes (not currently, history of) Smoking risk assessment performed?: Yes Alcohol Intake: current Alcohol Intake frequency: 0-2 drinks per day Alcohol type: wine Drug use: Never Substance use type: does not use Caregiver/Support person: Yes Household members: significant other Housing: house Number of Children: 3 Communication Needs: Hard of Hearing Do you need help understanding health information?: Rarely 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 Pets and animals: No (favorite cat recently (winter 2024)) Do you think of yourself as: straight/heterosexual Current gender identity: male What is your relationship status?: living with partner Panel score (0-1 are the most socially isolated patients): 1 What type of physical activity do you participate in: none Special rosie needs: No Agree to transfusion: No Seatbelt use: always Working smoke detector in home: Yes Fire extinguisher in home: Yes Do you feel safe at home: Yes Do you feel safe in your relationship?: Yes Additional Social history: Lorne and Roberto, his SO, have been together for decades. They have children together. She works out of the home most of the time. Most of the time, Lorne stays on the second floor. he goes down approx onc e per 5 days to have his hair washed. He gets very dyspneic with any activity. He cannot walk from his bed to the bathroom without stopping to rest. He struggles to get back up the stairs due to his dyspnea, even with oxygen in place. He and Roberto are considering getting ; he is afraid of how it will affect his VA benefits if they . He is committed to her and he to him.
--- NOTE | 2025-02-19 11:51 | W.PM.PROGNOT ---
Date of Service Date of service: 02/19/25 Time of Service: 11:51 Assessment and Plan Assessment and plan (1) Pain: Status: Acute Assessment and plan: well controlled on hydromorphone IV infusion will need surgery to control pain without pump (2) Closed right hip fracture: Status: Acute (3) Fracture of right hip: Status: Acute Assessment and plan: orthopedics has been consulted Dr Prince on tomorrow; no one noted on schedule for today. (4) Goals of care, counseling/discussion: Status: Acute Assessment and plan: Clear plan in place now. Wants to have his hip repaired for pain control. Prefers it happens at [facility]. Understands he may have to go to [facility] if our team feels he is too high risk. He says he wants to accept the risk and stay here. He is on hospice, so understands that even in best case scenario, his life expectancy is limited to an estimated 6 months or less. (5) Oxygen dependent: Status: Acute Assessment and plan: usually at 4L at home (6) Dyspnea on minimal exertion: Status: Acute Assessment and plan: long-standing is on both lorazepam and morphine at home, on a regular basis does not have respiratory depression despite these 2 meds (7) Hospice care: Status: Acute Assessment and plan: Remains on HOSPICE GIP/symptom management at this time. When he is accepted by orthopedic team, will use his usual Medicare benefit for coverage. Once he is off of ortho service, will return to hospice care. (8) COPD (chronic obstructive pulmonary disease): Status: Chronic Assessment and plan: End-stage. Has history of smoking. (9) Heavy alcohol consumption: Status: Acute Assessment and plan: On CIWA protocall. Last etoh was Thursday02/17/25 evening. (10) Ex-smoker for more than 1 year: Status: Acute Subjective Subjective Patient reports: feels better, pain is less, shortness of breath and afebrile Interval history since last seen: I met with Lorne, his partner Roberto, and their son Alexander this am. Lorne is on hospice for his end-stage COPD. Yesterday, 02/18/25, about 2 pm, Lorne fell at home and broke his right hip. Roberto called 911 and he was transported to [facility]. He was evaluated in the ER and told Dr Vega that he did not want surgery. Last night, Lorne was too sedated by his pain medications to make an informed decision about how to address his impacted comminuted right femoral neck fracture. He told me he wanted to let it heal on his own. I told him it was not a type of fracture that could heal on it own and that we would meet again in the am. This morning, he is comfortable on 0.4 mg/hr of hydromorphone. He has required only 2 boluses overnight. He was able to think clearly. I explained what his xray showed. I explained that this type of fracture is usually treated with a hip replacement, as far as I am aware. He said he would like to have surgery. He consented to a orthopedic consult, which I ordered. I explained that our anesthesia team needs to be involved in treatment decisions, too. If they don't feel comfortable doing his surgery at [facility], he is willing to go to [facility], but he would STRONGLY prefer to stay at [facility]. I checked with nursing about what I could do to prepare him for possible surgery at [facility]. I started LR, SCDs, ordered labs for today and for the am. He will be NPO after midnight. I started him on the CIWA protocol, too, as he usually drinks 1 bottle of wine at night. He is clearer and quite comfortable. He is able to make an informed decision. Exam Narrative Exam Narrative: Appears stated age, sitting up in his bed, wearing his oxygen, barrel-chested due to his copd, alert and oriented x 3. VS reviewed eyes anicteric heent hearing grossly intact. mmm neck no lad or jvd lungs distant throughout all barajas, no wheeze or rhonchi noted cv distant, sounds regular, normal rate abd soft, hypoactive bowel sounds, reducible umbilical hernia, no scars gu has johnson in place, draining concentrated urine ext + clubbing of fingernails, feet are cool to touch, loss of muscle mass in legs, unable to move his right leg without pain neuro moving his extremities, no facial droop, no asterixis, when anxious, right hand shakes skin no bruises or abrasions noted psych admits he has anxiety Objective Last Vital Signs Temp 98.4 F 02/19/25 07:27 Pulse 111 H 02/19/25 07:27 Resp 19 02/19/25 07:27 BP 130/87 02/19/25 07:27 Pulse Ox 94 02/19/25 09:23 Reviewed Pertinent PMH: Yes PAWSS Have you Been Recently Intoxicated or Drunk Within the Last 30 days?: No Have you Ever Experienced Previous Episodes of Alcohol Withdrawal?: No Have you ever Experienced Withdrawal Seizures?: No Have you ever Experienced Delirium Tremens(DT)s?: No Have you ever undergone Alcohol Rehabilitation Treatment (i.e, inpt ot outpatient treatment programs)?: No Have you ever Experienced Blackouts?: No Have you ever Combined Alcohol with other Downers within the last 90 days?: No Have you ever Combined Alcohol with any other Substance of Abuse during the last 90 days?: No Positive Blood Alcohol level on Presentation? [PCS.BAL]: No Evidence of Increased Autonomic Activity (i.e. HR>120, tremor, sweating, agitation, nausea)?: No Result: 0 Time Spent with Patient Time Spent with Patient: 35-49 minutes Time was spent: preparing to see the patient(eg.review tests), obtaining and/or reviewing separately otained hiistory, ordering medications,tests, procedures, referring, communicating with other health workforce investment act career manager, indepentently interpreting results, counseling the patient and care coordination
[2025-02-19] MEDS: Lactated Ringers 1,000 ML 100 ML IV ×2 (12:09→20:18)
[2025-02-19] MEDS: LORazepam 1 MG TAB PO/SL ×2 (17:33→21:59)
[2025-02-19 18:10] LABS: Abs Immature Grans 0.03 10^3/uL (0.0-0.06); Absolute Eosinophil Count 0.49 10^3/uL (0.0-0.7); Absolute Lymphocyte Count 0.88 10^3/uL (1.2-3.4); Absolute Monocyte Count 1.08 10^3/uL (0.1-0.8); Basophils % 0.4 %; Eosinophils % 4.3 %; HCT 40.6 % (40.0-50.0); HGB 13.2 g/dL (13.5-17.5); Immature Grans % 0.3 %; Lymphocytes % 7.7 %; MCH 31.4 pg (27.0-33.0); MCHC 32.5 % (32.0-36.0); MCV 97 fL (80-95); MPV 9.9 fL (8.0-11.0); Monocytes % 9.5 %; Neutrophils % 77.8 %; Platelet Count 202 10^3/uL (130-400); RDW 12.8 % (11.8-14.1); RDW-SD 45.3 fL
[2025-02-19 18:20] LABS: Absolute Basophil Count 0.05 10^3/uL (0.0-0.2); Absolute Neutrophil Count 8.87 10^3/uL (1.2-6.7)
[2025-02-19 18:38] LABS: ALT 49 U/L (16-63); AST 60 U/L (15-37); Albumin 3.4 g/dL (3.4-5.0); Alkaline Phosphatase 115 U/L (46-116); Anion Gap 3.5 mmol/L (3-11); BUN 41 mg/dL (7-18); Bilirubin, Total 0.6 mg/dL (0.2-1.0); CO2 35.5 mmol/L (21.0-32.0); CREATININE 3.3 mg/dL (0.70-1.30); Calcium 9.3 mg/dL (8.5-10.1); Chloride 99 mmol/L (98-107); Estimated GFR 18.97 (mL/min/1.73m2); Glucose 153 mg/dL (74-106); Sodium 138 mmol/L (136-145)
[2025-02-20] VITALS (18 sets, daily range): BP systolic 115–144; BP diastolic 62–80; PULSE 82–103; RESP 12–22; TEMP 37–38.8; O2SAT 83–93
--- NOTE | 2025-02-20 | DI.RAD_ITS ---
Exam(s) XR PORTABLE CHEST AP EXAM: XR PORTABLE CHEST AP CLINICAL HISTORY: fever TECHNIQUE: 2D digital imaging was performed. COMPARISON: CR XR CHEST, 2 VIEWS from 06/15/[address] CHEST LUNG CANCER SCREEN from 07/10/2023 FINDINGS: LUNGS: Underlying emphysematous changes. Increase interstitial markings bilaterally, bronchial thick ening and vascular prominence suspicious for CHF. There is also question of some increased densities at the lung bases which could represent atelectasis, pneumonia or edema. No pleural abnormality see n. HEART: Normal size. AORTA: Normal diameter. BONES: Unremarkable for age. Soft tissues: Unremarkable. IMPRESSION: Findings suspicious for cyst CHF. Question of bibasilar infiltrates. DATA REPOSITORY: RADIATION DOSE DELIVERED:
[2025-02-20] MEDS: Ketorolac 15 MG/ML VIAL IVP ×2 (03:24→16:22)
[2025-02-20] MEDS: Lactated Ringers 1,000 ML 100 ML IV ×2 (05:27→15:40)
[2025-02-20] MEDS: ACETAMINOPHEN 1,000 MG/100 ML BAG 400 MG IVPB ×2 (06:02→14:33)
[2025-02-20 07:08] LABS: Abs Immature Grans 0.05 10^3/uL (0.0-0.06); Absolute Basophil Count 0.04 10^3/uL (0.0-0.2); Absolute Eosinophil Count 0.52 10^3/uL (0.0-0.7); Absolute Monocyte Count 1.19 10^3/uL (0.1-0.8); Basophils % 0.3 %; Eosinophils % 4.3 %; HCT 35.9 % (40.0-50.0); HGB 11.6 g/dL (13.5-17.5); Immature Grans % 0.4 %; Lymphocytes % 7.5 %; MCH 31.3 pg (27.0-33.0); MCHC 32.3 % (32.0-36.0); MCV 97 fL (80-95); MPV 10.6 fL (8.0-11.0); Monocytes % 9.9 %; Neutrophils % 77.6 %; Platelet Count 184 10^3/uL (130-400); RBC 3.71 10^6/uL (4.36-5.78); RDW 12.7 % (11.8-14.1); RDW-SD 45.1 fL; WBC 11.98 10^3/uL (4.4-10.8)
[2025-02-20 07:19] LABS: Anion Gap 2.1 mmol/L (3-11); BUN 40 mg/dL (7-18); CO2 35.9 mmol/L (21.0-32.0); Calcium 8.9 mg/dL (8.5-10.1); Chloride 100 mmol/L (98-107); Estimated GFR 34.59 (mL/min/1.73m2); Glucose 112 mg/dL (74-106); Potassium 3.9 mmol/L (3.5-5.1); Sodium 138 mmol/L (136-145)
[2025-02-20] MEDS: Budesonide/Formoterol 160/4.5 6 GM 60 PUFF INH IH ×2 (08:38→19:48)
[2025-02-20] MEDS: Tiotropium Bromide-Respimat 10 PUFF INH 2 PUFF IH (08:38)
[2025-02-20] MEDS: Normal Saline Flush 10 ML SYR IVP ×4 (08:50→20:36)
[2025-02-20] MEDS: ceFAZolin 1 GM/50 ML BAG IVPB ×2 (08:50→20:32)
[2025-02-20] MEDS: Polyethylene Glycol 3350 17 GM PACKET PO (08:50)
[2025-02-20] MEDS: Multivitamin TAB 1 TAB PO (08:51)
[2025-02-20] MEDS: hydroCHLOROthiazide 25 MG TAB PO (08:51)
[2025-02-20] MEDS: dilTIAZem 60 MG TAB PO ×3 (08:51→22:35)
[2025-02-20] MEDS: Folic Acid 1 MG TAB PO (08:51)
[2025-02-20] MEDS: Senna TAB 1 TAB PO ×2 (08:51→22:39)
[2025-02-20] MEDS: Thiamine 100 MG TAB PO (08:51)
--- NOTE | 2025-02-20 14:25 | CMPROGNOTE_ITS ---
Date of service: 02/20/25 Time of Service: 14:25 Care Management Progress Note Progress Note Text Progress Note Text: Lorne was sleeping in bed when CM arrived. He was responsive to his name. He stated that his hip hurt and he was in some pain. Lorne nodded off a few times during the conversation and was woken again, by name. Hospice is going to come see Lorne today, and surgical is consulting. Discharge Potential Discharge Needs: PCP F/U Appt, Surgical F/U Appt and Other (Hospice) Anticipated Barriers to Discharge: None Identified Patient/Family Education Needs: Review discharge instructions, discuss Ask Me Three Transportation: Private vehicle (Family) Plan: Anticipate Lorne will be discharged home on hospice. He will follow up with his community provider, surgical, and continue per his plan of care. He will transport via private vehicle by family. CM will continue to follow. Social Determinants of Health Screening Social Determinants of health last assessed in clinic: 02/20/25 Will the Patient Participate in the Screening?: Yes Do you worry about having a steady place to live?: no Problems where you live: no known problems In the past 12 months, have you had to go without electric, gas, oil or water in your home?: no 1. Within the past 12 months, we worried whether our food would run out before we got money to buy more.: Never true 2. Within the past 12 months, the food we bought just didn't last and we didn't have money to get more.: Never true Has lack of transportation kept you from medical appointments or from doing things needed for daily living?: no Has anyone in your life made you feel unsafe or unsupported?: no How hard is it for you to pay for the very basics like food, housing, medical care, and heating? Would you say it is:: Not hard at all Do you want help finding or keeping work or a job?: I do not need or want help If for any reason you need help with day-to-day activities such as bathing, preparing meals, shopping, managing finances, etc., do you get the help you need?: I don?t need any help How often do you feel lonely or isolated from those around you?: Never Do you speak a language other than Telugu at home?: No Does the patient want assistance with any of the above?: No
--- NOTE | 2025-02-20 14:46 | PHA.REVIEW2 ---
Pharmacy Admission Review Admission Clinical Review Admission Pharmacy Review: Ex-smoker for more than 1 year (Acute) Heavy alcohol consumption (Acute) Fracture of right hip (Acute) Pain (Acute) Closed right hip fracture (Acute) Goals of care, counseling/discussion (Acute) Dyspnea on minimal exertion (Acute) Oxygen dependent (Acute) Hospice care (Acute) No Known Allergies Allergy (Unverified 11/21/23 17:34) Resuscitation Status DNR/DNI Height 6 ft Weight 83.5 kg Pharmacy Admission Review Renal Dosing Renal Dosing: BUN 40 mg/dL (7-18) H 02/20/25 06:30 Creatinine 2.0 mg/dL (0.70-1.30) H D 02/20/25 06:30 Medications needing adjustments: Reviewed (CrCl 38 mL/min, BUN decreased from 41 and SCr decreased from 3.3) List of meds needing interventions: Current medications are okay Anticoagulation Anticoagulation: Hgb 11.6 g/dL (13.5-17.5) L 02/20/25 06:30 Hct 35.9 % (40.0-50.0) L 02/20/25 06:30 Plt Count 184 10^3/uL (130-400) 02/20/25 06:30 Creatinine 2.0 mg/dL (0.70-1.30) H D 02/20/25 06:30 DVT Prophylaxis: Reviewed (SCDs, Hgb decreased from 13.2) Opiate Usage Evaluate Pain Scale/Pains Meds: Reviewed (was on hydromorphone infusion (hospice) but discontinued today as patient had decided to move forward with surgery) Relevant Labs Relevant Labs: Sodium 138 mmol/L (136-145) 02/20/25 06:30 Potassium 3.9 mmol/L (3.5-5.1) 02/20/25 06:30 Chloride 100 mmol/L (98-107) 02/20/25 06:30 Electrolytes, C-Reactive P, ESR: Reviewed Cardiac Review BP, HR, EF%: Reviewed (BP and HR WNL, oxygen flow rate = 5.5) List meds needing interventions: has orders for diltiazem 60mg TID and HCTZ 25mg daily QTc Review QTc: Reviewed (No EKG on file) IV to PO Switch IV Medications: Reviewed (APAP, cefazolin and ketorolac) Home Meds Home Med List reviewed: Reviewed Relevent Home Meds Not ordered & why?: citalopram, clobetasol ointment and Dulera (has order for Symbicort) Current Meds Current Medication Order Review: Intervened Comments: Added 2nd PRN to ketorolac order per pharmacy protocol Pharmacy Antibiotic Review Relevant Labs: WBC 11.98 10^3/uL (4.4-10.8) H 02/20/25 06:30 Temperature 38.8 C 1445 Temperature 37.0 C 1111 Temperature 37.2 C 0717 Temperature 38.3 C 0531 Pharmacy Antibiotic Activity: C/S review and Reviewed, no change Comments: Patient is on cefazolin, day 1. Blood cultures pending.
[2025-02-20] MEDS: Albuterol/Ipratropium 3 ML UPD VIAL IH (15:32)
--- NOTE | 2025-02-20 16:31 | PGE_ITS ---
Date of Service Date of service: 02/20/25 Time of Service: 16:31 Assessment and Plan Assessment and plan (1) Pain: Status: Acute Assessment and plan: IV hydomorphone drip discontinued so patient can make an informed decision with capacity regarding surgery on his hip. PRN Ketorolac and Morphine (2) Closed right hip fracture: Status: Acute Assessment and plan: see ortho note (3) Fracture of right hip: Status: Acute Assessment and plan: Seen by Dr Prince - see his consult note (4) Oxygen dependent: Status: Acute Assessment and plan: usually at 4L at home; increased to 6 lpm oxymask for SPO2 in low 80's and increased wob - patient agrees to BiPap overnight if needed (5) Dyspnea on minimal exertion: Status: Acute Assessment and plan: long-standing morphine and lorazepam given at home (6) COPD (chronic obstructive pulmonary disease): Status: Chronic Assessment and plan: End-stage. Has history of smoking. (7) Heavy alcohol consumption: Status: Acute Assessment and plan: CIWA d/c'd no s/s of wd, not scoring (8) Ex-smoker for more than 1 year: Status: Acute Subjective Subjective Patient reports: no new complaints, pain is less, tolerating liquids well, no flatus, no bowel movement, shortness of breath and fever; denies diarrhea, nausea or vomiting Interval history since last seen: Lorne continues to experience shortness of breath. He has been indecisive about whether to proceed with hip surgery. At present, he appears somewhat confused and lacks the capacity to make an informed decision. His mind-altering medications have been reduced in an effort to improve his mental clarity and enable informed consent. Notably, his pain levels have remained stable despite the reduction in opioids. Exam Const Orientation: alert, awake, oriented to person, oriented to place and confused Other: Patient is confused and unclear regarding current wishes. He does know his family and that he is in hospital with broken hip; however unclear as to what to do next. HENMT Head: normal to inspection Ears: external ears normal General nose exam: external nose normal Mouth: moist mucous membranes Eyes General: appearance normal, both eyes and all related structures Neck Neck: normal visual inspection Resp Effort & Inspection: normal respiratory effort and able to speak in complete sentences Cardio Rate: regular rate Skin General skin exam: no rashes or lesions noted Neuro General: patient alert and patient oriented x3 Extrem General: capillary refill normal Psych Mental Status: mental status grossly normal Objective Last Vital Signs Temp 37.8 C H 02/20/25 16:03 Pulse 82 02/20/25 16:03 Resp 16 02/20/25 16:03 BP 115/76 02/20/25 16:03 Pulse Ox 93 02/20/25 16:03 Laboratory Results - last 24 hr 02/19/25 02/20/25 02/20/25 17:57 06:16 06:30 WBC 11.40 H 11.98 H RBC 4.20 L 3.71 L Hgb 13.2 L Cancelled 11.6 L Hct 40.6 Cancelled 35.9 L MCV 97 H 97 H MCH 31.4 31.3 MCHC 32.5 32.3 RDW 12.8 12.7 Plt Count 202 184 MPV 9.9 10.6 Immature Gran % 0.3 0.4 Neutrophils % 77.8 77.6 Lymphocytes % 7.7 7.5 Monocytes % 9.5 9.9 Eosinophils % 4.3 4.3 Basophils % 0.4 0.3 Nucleated RBC % 0.0 0.0 Absolute Neutrophils 8.87 H 9.30 H Absolute Lymphocytes 0.88 L 0.90 L Absolute Monocytes 1.08 H 1.19 H Absolute Eosinophils 0.49 0.52 Absolute Basophils 0.05 0.04 Sodium 138 138 Potassium 4.0 3.9 Chloride 99 100 Carbon Dioxide 35.5 H 35.9 H Anion Gap 3.5 2.1 L BUN 41 H 40 H Creatinine 3.3 H 2.0 H D Est GFR (CKD-EPI 2020) 18.97 34.59 Glucose 153 H 112 H Calcium 9.3 8.9 Total Bilirubin 0.6 AST 60 H ALT 49 Alkaline Phosphatase 115 Total Protein 8.0 Albumin 3.4 PAWSS Have you Been Recently Intoxicated or Drunk Within the Last 30 days?: No Have you Ever Experienced Previous Episodes of Alcohol Withdrawal?: No Have you ever Experienced Withdrawal Seizures?: No Have you ever Experienced Delirium Tremens(DT)s?: No Have you ever undergone Alcohol Rehabilitation Treatment (i.e, inpt ot outpatient treatment programs)?: No Have you ever Experienced Blackouts?: No Have you ever Combined Alcohol with other Downers within the last 90 days?: No Have you ever Combined Alcohol with any other Substance of Abuse during the last 90 days?: No Positive Blood Alcohol level on Presentation? [PCS.BAL]: No Evidence of Increased Autonomic Activity (i.e. HR>120, tremor, sweating, agitation, nausea)?: No Result: 0 Time Spent with Patient Time Spent with Patient: >50 minutes Time was spent: preparing to see the patient(eg.review tests), ordering medications,tests, procedures, referring, communicating with other health team primary care physician, indepentently interpreting results, counseling the patient and care coordination
[2025-02-20] MEDS: Furosemide 40 MG/4 ML VIAL IVP (16:41)
--- NOTE | 2025-02-20 17:17 | OCONE_ITS ---
Date of service: 02/20/25 Time of Service: 16:30 History of Present Illness History of Present Illness Chief Complaint: Right hip pain Narrative: Lorne is a 74-year-old male on hospice for severe COPD, oxygen dependent. He is a minimal ambulator at baseline. While getting his hair washed he tripped and fell onto his right side at home. He is unable to ambulate was brought to the emergency department on 18 February. He was diagnosed with a comminuted femoral neck fracture. He was not interested in surgery as he was already on hospice. He was admitted for pain control. However, he then expressed some concerns with ongoing pain control and desired consideration of surgery for his hip fracture. I was called in consultation by the palliative service, Dr. Whitman. Unfortunately I first went by to see him earlier in the day he was not able to communicate fully under the influence of a Dilaudid drip. He was transferred to the hospital service for consideration of surgery and management of current pain and the Dilaudid drip was stopped. On return this afternoon he is much more coherent. He expresses pain in the right hip. He is slow to respond in general but seems to be thinking about his options. He understands he was on hospice prior but is unsure of what he wants to do proceeding forward. Unfortunately, throughout the day today he has been running low-grade fever, currently 38.8. He also has had a slight increase in his oxygen requirements up to 6 L to maintain his oxygen saturation between 88 and 90%. Consults Consult date: 02/20/25 Requesting physician: Umm Reed Consult Reason Right hip fracture Assessment and Plan Assessment and plan (1) Displaced fracture of right femoral neck: Status: Acute Assessment and plan: Lorne is a 74-year-old male who has a comminuted fracture of the right femoral neck. He is at baseline on hospice with severe COPD requiring oxygen at home and notable dyspnea even with taking a few steps. Unfortunately, is a very challenging decision. Typically, this fracture is treated with surgery, hemiarthroplasty versus total hip arthroplasty. Unfortunate there is some real risk with surgery. In a discussion with our anesthetic team here, spinal anesthetic could be considered but his lungs are of such a poor state that intubation should be avoided, particular with his DNR, DNI status at baseline. He is also on hospice due to the situation of his lungs which once again makes considering general anesthesia quite challenging. Nevertheless, if the hip fracture is not fixed, he will likely be bedbound and thus will succumb to his COPD and bedbound status with worsening lung function. However, that he would be able to be kept comfortable without concern for abrupt medical change which could be accompanied with surgery. I gave him time to process this and asked questions. He was thinking about the options and was unsure about what he wants to do and what questions asked. His partner, Roberto, and [id number], Kostas, were present. Questions were asked. At this point the hospitalist team will continue to workup his new fever and worsening oxygen saturation status. This would obviously preclude any surgery anyway. We will continue to discuss this with him and his family and the palliative care and hospice team. I will plan to see him again tomorrow to further discuss this and develop a plan. Review of Systems All systems reviewed & are unremarkable except as noted in HPI and below PFSH All Active Problems (Updated 02/20/25 @ 17:21 by Armen Prince MD) Displaced fracture of right femoral neck (Acute) Ex-smoker for more than 1 year (Acute) Heavy alcohol consumption (Acute) Fracture of right hip (Acute) Pain (Acute) Closed right hip fracture (Acute) impacted comminuted right femoral neck fracture Goals of care, counseling/discussion (Acute) Dyspnea on minimal exertion (Acute) Oxygen dependent (Acute) Hospice care (Acute) Deviated septum (Acute) Respiratory failure with hypoxia (Chronic) Pulmonary nodules (Acute) COPD (chronic obstructive pulmonary disease) (Chronic) Tinnitus, bilateral (Acute) Sensorineural hearing loss (SNHL), bilateral (Acute) Intrinsic (allergic) eczema (Acute) Essential hypertension (Acute) Spontaneous pneumothorax (Acute) Medical History Solitary pulmonary nodule Social History Smoking/Tobacco Use Status: Former Tobacco Use Quit Date: 03/19/16 Tobacco: How many years used: 45 Second Hand Exposure: Yes (not currently, history of) Smoking risk assessment performed?: Yes Alcohol Intake: current Alcohol Intake frequency: 0-2 drinks per day Alcohol type: wine Drug use: Never Substance use type: does not use Caregiver/Support person: Yes Household members: significant other Housing: house Number of Children: 3 Communication Needs: Hard of Hearing Do you need help understanding health information?: Rarely 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 Pets and animals: No (favorite cat recently (winter 2024)) Do you think of yourself as: straight/heterosexual Current gender identity: male What is your relationship status?: living with partner Panel score (0-1 are the most socially isolated patients): 1 What type of physical activity do you participate in: none Special rosie needs: No Agree to transfusion: No Seatbelt use: always Working smoke detector in home: Yes Fire extinguisher in home: Yes Do you feel safe at home: Yes Do you feel safe in your relationship?: Yes Additional Social history: Lorne and Roberto, his SO, have been together for decades. They have children together. She works out of the home most of the time. Most of the time, Lorne stays on the second floor. he goes down approx once per 5 days to have his hair washed. He gets very dyspneic with any activity. He cannot walk from his bed to the bathroom without stopping to rest. He struggles to get back up the stairs due to his dyspnea, even with oxygen in place. He and Roberto are considering getting ; he is afraid of how it will affect his VA benefits if they . He is committed to her and he to him. Exam Narrative Exam Narrative: Resting in a semireclined position in the hospital bed, supine. This afternoon he is alert and oriented x 3. Oxygen mask is being worn. Nonlabored breathing. Right lower extremity shows some external rotation and mild shortening. No overlying skin defects. He is able demonstrate some active toe extension and flexion endorse sensation of the superficial peroneal, deep peroneal, tibial nerve. Results Last Vital Signs Temp 37.8 C H 02/20/25 16:03 Pulse 82 02/20/25 16:03 Resp 16 02/20/25 16:03 BP 115/76 02/20/25 16:03 Pulse Ox 93 02/20/25 16:03 Labs 02/20/25 06:30 02/20/25 06:30 Labs: Laboratory Results - last 24 hr 02/19/25 02/20/25 02/20/25 17:57 06:16 06:30 WBC 11.40 H 11.98 H RBC 4.20 L 3.71 L Hgb 13.2 L Cancelled 11.6 L Hct 40.6 Cancelled 35.9 L MCV 97 H 97 H MCH 31.4 31.3 MCHC 32.5 32.3 RDW 12.8 12.7 Plt Count 202 184 MPV 9.9 10.6 Immature Gran % 0.3 0.4 Neutrophils % 77.8 77.6 Lymphocytes % 7.7 7.5 Monocytes % 9.5 9.9 Eosinophils % 4.3 4.3 Basophils % 0.4 0.3 Nucleated RBC % 0.0 0.0 Absolute Neutrophils 8.87 H 9.30 H Absolute Lymphocytes 0.88 L 0.90 L Absolute Monocytes 1.08 H 1.19 H Absolute Eosinophils 0.49 0.52 Absolute Basophils 0.05 0.04 Sodium 138 138 Potassium 4.0 3.9 Chloride 99 100 Carbon Dioxide 35.5 H 35.9 H Anion Gap 3.5 2.1 L BUN 41 H 40 H Creatinine 3.3 H 2.0 H D Est GFR (CKD-EPI 2020) 18.97 34.59 Glucose 153 H 112 H Calcium 9.3 8.9 Total Bilirubin 0.6 AST 60 H ALT 49 Alkaline Phosphatase 115 Total Protein 8.0 Albumin 3.4 Imaging Imaging Studies: X-ray of the right femur and pelvis demonstrates a comminuted transcervical fracture of the right femoral neck. There is some mild shortening and varus displacement.
[2025-02-20] MEDS: ACETAMINOPHEN 1,000 MG/100 ML BTL 400 MG IV (22:19)
[2025-02-20] MEDS: Bisacodyl 10 MG SUPP PR (22:24)
[2025-02-21] VITALS (16 sets, daily range): BP systolic 117–159; BP diastolic 68–90; PULSE 95–109; RESP 3–24; TEMP 36.9–37.7; O2SAT 88–94
--- NOTE | 2025-02-21 | DI.RAD_ITS ---
Exam(s) XR ABDOMEN FLAT PLATE EXAM: XR ABDOMEN FLAT PLATE CLINICAL HISTORY: constipation and vomiting. TECHNIQUE: 2D digital imaging was performed. COMPARISON: No exams were available for comparison FINDINGS: AP supine view of the abdomen-pelvis Right hip fracture noted. There are air-filled nondilated small bowel loops there is also some air seen in the left side of the colon. No obvious bowel obstruction realizing limitations of series without upright or decubitus im ages. There is blunting left costophrenic angle indicating a small amount of left pleural fluid. IMPRESSION: No obvious bowel obstruction. DATA REPOSITORY: RADIATION DOSE DELIVERED:
[2025-02-21] MEDS: Ondansetron 4 MG/2 ML VIAL IVP (00:17)
--- NOTE | 2025-02-21 00:19 | W.EVENT ---
Date of service: 02/21/25 Time of Service: 00:19 Event Note: called by ns 2/2 to multiple episodes of emesis. PE shows distended abd with decreased bowel sounds x4 quadrants. Ordered zofran and abd film. Pt denies abd pain but does endorse nausea. Time Spent with Patient Time spent in critical care(minutes): 5 Time Spent Included: Chart review and Time at immediate bedside
[2025-02-21] MEDS: Ketorolac 15 MG/ML VIAL IVP (00:22)
[2025-02-21] MEDS: Albuterol/Ipratropium 3 ML UPD VIAL IH (00:56)
[2025-02-21] MEDS: MORPHine 2 MG/ML SYR 1 MG IVP ×3 (01:04→13:44)
--- NOTE | 2025-02-21 01:13 | DI.VRAD_ITS ---
PROCEDURE INFORMATION: Exam: XR Abdomen Exam date and time: 02/21/2025 12:43 AM Age: 74 years old Clinical indication: Constipation and vomiting TECHNIQUE: Imaging protocol: Radiologic exam of the abdomen. Views: Frontal supine view of the abdomen. 1 View. COMPARISON: 1. CR XR PORTABLE CHEST AP 02/20/2025 3:17 PM 2. CR XR FEMUR RT 02/18/2025 3:36 PM FINDINGS: Gastrointestinal tract: Negative for dilated air-filled loops of small bowel. Moderate gas is scattered in the small bowel and colon. Moderate distal colonic stool noted. Bones/joints: A right femoral neck fracture is again noted. IMPRESSION: No evidence of small bowel obstruction. Dictated and Authenticated by: Yogesh Cervantes MD. Orderin Nish Sifuentes MD
[2025-02-21 06:40] LABS: Abs Immature Grans 0.05 10^3/uL (0.0-0.06); Absolute Basophil Count 0.05 10^3/uL (0.0-0.2); Absolute Eosinophil Count 0.06 10^3/uL (0.0-0.7); Basophils % 0.3 %; Eosinophils % 0.4 %; HCT 37.4 % (40.0-50.0); HGB 12.2 g/dL (13.5-17.5); Immature Grans % 0.3 %; Lymphocytes % 3.9 %; MCH 31.4 pg (27.0-33.0); MCHC 32.6 % (32.0-36.0); MCV 96 fL (80-95); MPV 10.3 fL (8.0-11.0); Monocytes % 8.6 %; Neutrophils % 86.5 %; Platelet Count 195 10^3/uL (130-400); RBC 3.89 10^6/uL (4.36-5.78); RDW 12.7 % (11.8-14.1); RDW-SD 44.2 fL; WBC 15.06 10^3/uL (4.4-10.8)
[2025-02-21 06:46] LABS: Absolute Lymphocyte Count 0.59 10^3/uL (1.2-3.4); Absolute Neutrophil Count 13.03 10^3/uL (1.2-6.7)
[2025-02-21 06:57] LABS: Anion Gap 7.4 mmol/L (3-11); BUN 41 mg/dL (7-18); CO2 37.6 mmol/L (21.0-32.0); CREATININE 1.5 mg/dL (0.70-1.30); Calcium 9.4 mg/dL (8.5-10.1); Chloride 97 mmol/L (98-107); Estimated GFR 48.85 (mL/min/1.73m2); Glucose 157 mg/dL (74-106); Potassium 3.3 mmol/L (3.5-5.1); Sodium 142 mmol/L (136-145)
[2025-02-21] MEDS: Tiotropium Bromide-Respimat 10 PUFF INH 2 PUFF IH (08:02)
[2025-02-21] MEDS: Budesonide/Formoterol 160/4.5 6 GM 60 PUFF INH IH ×2 (08:02→20:00)
[2025-02-21] MEDS: dilTIAZem 60 MG TAB PO ×3 (09:32→21:02)
[2025-02-21] MEDS: hydroCHLOROthiazide 25 MG TAB PO (09:34)
[2025-02-21] MEDS: Multivitamin TAB 1 TAB PO (09:35)
[2025-02-21] MEDS: Thiamine 100 MG TAB PO (09:35)
[2025-02-21] MEDS: Folic Acid 1 MG TAB PO (09:35)
[2025-02-21] MEDS: Senna TAB 1 TAB PO ×2 (09:35→21:03)
[2025-02-21] MEDS: Polyethylene Glycol 3350 17 GM PACKET PO (09:36)
[2025-02-21] MEDS: Normal Saline Flush 10 ML SYR IVP ×5 (09:37→21:03)
[2025-02-21] MEDS: ceFAZolin 1 GM/50 ML BAG IVPB (09:40)
[2025-02-21] MEDS: Potassium Chloride 20 MEQ TABCR 40 MEQ PO (10:51)
--- NOTE | 2025-02-21 12:37 | PDOC.CMPRO ---
Date of service: 02/21/25 Time of Service: 12:38 Care Management Progress Note Progress Note Text Progress Note Text: Lorne was lying in bed and was surrounded by family, who are supporting him during this time. He appeared more awake today, and engaged in conversation, briefly. Per report, he will go home on hospice tomorrow; hospice is working on getting a bed delivered to the home, CM confirmed this with hospice. Lorne, and his family denies needing anything at this time. Discharge Potential Discharge Needs: PCP F/U Appt, Surgical F/U Appt and Other (Hospice) Anticipated Barriers to Discharge: None Identified and Medical Status Patient/Family Education Needs: Review discharge instructions, discuss Ask Me Three Transportation: Private vehicle (family) Plan: Anticipate Lorne will be discharged home on hospice. He will follow up with his community provider, surgical, and continue per his plan of care. He will transport via private vehicle by family. CM will continue to follow. Social Determinants of Health Screening Social Determinants of health last assessed in clinic: 02/21/25 Will the Patient Participate in the Screening?: Yes Do you worry about having a steady place to live?: no Problems where you live: no known problems In the past 12 months, have you had to go without electric, gas, oil or water in your home?: no 1. Within the past 12 months, we worried whether our food would run out before we got money to buy more.: Don't know/refused 2. Within the past 12 months, the food we bought just didn't last and we didn't have money to get more.: Don't know/refused Has lack of transportation kept you from medical appointments or from doing things needed for daily living?: no Has anyone in your life made you feel unsafe or unsupported?: no How hard is it for you to pay for the very basics like food, housing, medical care, and heating? Would you say it is:: Not hard at all Do you want help finding or keeping work or a job?: I do not need or want help If for any reason you need help with day-to-day activities such as bathing, preparing meals, shopping, managing finances, etc., do you get the help you need?: I don?t need any help How often do you feel lonely or isolated from those around you?: Never Do you speak a language other than Citizen Of [place] at home?: No Does the patient want assistance with any of the above?: No
--- NOTE | 2025-02-21 13:32 | CHAPLAIN ---
Lorne is here as a hospice patient with end stage COPD. He fell and fractured his right hip and discussing surgical repair options with ortho and anesthesiology. He was resting in bed when I visited and several family members were in the room. I explained my role, offered support and let Lorne know that curtain roller assembler support is available 11/05. I will continue to visit.
[2025-02-21 13:41] LABS: BE (Venous) 17 mmol/L (-2-3); HCO3 (Venous) 40 mmol/L (23-28); O2 Sat (Venous) 94 %; TCO2 (Venous) 36 mmol/L (24-29); pCO2 (Venous) 55 mmHg (41-51); pH (Venous) 7.47 (7.31-7.41); pO2 (Venous) 66 mmHg
[2025-02-21] MEDS: Bisacodyl 10 MG SUPP PR (14:30)
[2025-02-21] MEDS: ACETAMINOPHEN 1,000 MG/100 ML BTL 400 MG IV ×2 (14:33→22:40)
--- NOTE | 2025-02-21 15:39 | PGE_ITS ---
Date of Service Date of service: 02/21/25 Time of Service: 15:39 Assessment and Plan Assessment and plan (1) Pain: Status: Acute Assessment and plan: Patient was admitted to the hospice service on 02/18 for pain control and symptom management. He was evaluated on 02/18 and again on 02/19 during a family meeting that included the patient, Dr. Reed, his significant other (Roberto), and their son. During this meeting, the patient expressed a desire to pursue hip surgery. Medications and other supportive measures were initiated to optimize the patient for surgery on 02/20. The patient was transferred to the [facility] hospitalist service at that time. On the morning of 02/20, the patient developed a fever. He was subsequently evaluated by Orthopedist Dr. Jason Prince and the anesthesia team. Due to the onset of fever and clinical instability, surgery was postponed. On 02/20 and continuing into 02/21, the patient experienced hypoxia and intermittent confusion. Oxygen requirements increased from 4L to 6L. His hydromorphone pump was discontinued and replaced with PRN morphine for symptom management. * On 02/21, a follow-up family meeting was held to discuss surgery v returning home on hospice. * The meeting included the patient, Dr. Reed, his SO Roberto, their two sons, the patient?s two siblings, his stepdaughter, and [id number]. There was clear consensus that the patient would prefer to return home under hospice care and focus on comfort measures. * Discharge is planned for 02/22 via ambulance. A hospital bed has been ordered for home use. * The hydromorphone pump was restarted; morphine discontinued * Patient was on cefazolin; this has been discontinued. * CIWA discontinued - not scoring; lorazepam prn for anxiety continued * An aggressive bowel regimen was initiated due to no bowel movement since admission on 02/18 - dulcolax pr x 2 with no results - enema ordered and results pending at time of writing. * A home hospice visit is scheduled for 02/23 for follow-up. The patient is in agreement with this plan. An abdominal xray this morning showed no evidence of bowel obstruction. Patient does have distended abdomen - ascites. Chest xray 02/20 shows CHF and a question of bibasilar infiltrates. Labs today potassium 3.3, Cr 1.5, glucose 157, magnesium 2.0, Venous blood gas pH 7.47 pCO2 55 HCO3 40 (2) Closed right hip fracture: Status: Acute Assessment and plan: see ortho note (3) Fracture of right hip: Status: Acute Assessment and plan: Seen by Dr Prince - see his consult note (4) Oxygen dependent: Status: Acute Assessment and plan: usually at 4L at home; increased to 6 lpm oxymask for SPO2 in low 80's and increased wob - patient agrees to BiPap overnight if needed (5) Dyspnea on minimal exertion: Status: Acute Assessment and plan: long-standing morphine and lorazepam given at home (6) COPD (chronic obstructive pulmonary disease): Status: Chronic Assessment and plan: End-stage. Has history of smoking. (7) Heavy alcohol consumption: Status: Acute Assessment and plan: CIWA d/c'd no s/s of wd, not scoring (8) Ex-smoker for more than 1 year: Status: Acute (9) Constipation: Status: Acute Assessment and plan: dulcolax pr x 1 no result, x 2 no result Fleets enema pending at time of writing Subjective Subjective Patient reports: no new complaints, pain is less, tolerating liquids well, tolerating a regular diet, shortness of breath and afebrile; denies flatus, bowel movement, diarrhea, nausea or vomiting Objective Last Vital Signs Temp 37.7 C H 02/21/25 15:32 Pulse 105 H 02/21/25 15:32 Resp 19 02/21/25 15:32 BP 145/90 H 02/21/25 15:32 Pulse Ox 90 L 02/21/25 15:32 Laboratory Results - last 24 hr 02/21/25 02/21/25 06:25 13:30 WBC 15.06 H RBC 3.89 L Hgb 12.2 L Hct 37.4 L MCV 96 H MCH 31.4 MCHC 32.6 RDW 12.7 Plt Count 195 MPV 10.3 Immature Gran % 0.3 Neutrophils % 86.5 Lymphocytes % 3.9 Monocytes % 8.6 Eosinophils % 0.4 Basophils % 0.3 Nucleated RBC % 0.0 Absolute Neutrophils 13.03 H Absolute Lymphocytes 0.59 L Absolute Monocytes 1.30 H Absolute Eosinophils 0.06 Absolute Basophils 0.05 VBG pH 7.47 H VBG pCO2 55 H VBG pO2 66 VBG HCO3 40 H VBG Total CO2 36 H VBG O2 Saturation 94 VBG Base Excess 17 H Sodium 142 Potassium 3.3 L Chloride 97 L Carbon Dioxide 37.6 H Anion Gap 7.4 BUN 41 H Creatinine 1.5 H Est GFR (CKD-EPI 2020) 48.85 Glucose 157 H Calcium 9.4 Magnesium 2.0 PAWSS Have you Been Recently Intoxicated or Drunk Within the Last 30 days?: No Have you Ever Experienced Previous Episodes of Alcohol Withdrawal?: No Have you ever Experienced Withdrawal Seizures?: No Have you ever Experienced Delirium Tremens(DT)s?: No Have you ever undergone Alcohol Rehabilitation Treatment (i.e, inpt ot outpatient treatment programs)?: No Have you ever Experienced Blackouts?: No Have you ever Combined Alcohol with other Downers within the last 90 days?: No Have you ever Combined Alcohol with any other Substance of Abuse during the last 90 days?: No Positive Blood Alcohol level on Presentation? [PCS.BAL]: No Evidence of Increased Autonomic Activity (i.e. HR>120, tremor, sweating, agitation, nausea)?: No Result: 0 Time Spent with Patient Time Spent with Patient: >50 minutes Time was spent: preparing to see the patient(eg.review tests), ordering medications,tests, procedures, referring, communicating with other health resident care supervisor, indepentently interpreting results, counseling the patient and care coordination
[2025-02-21] MEDS: HYDROmorphone 200 MG in CADD PUMP CASSETTE 1 EACH, Normal Saline 80 ML SC_INF (15:52)
--- NOTE | 2025-02-21 17:33 | PGE_ITS ---
Date of Service Date of service: 02/21/25 Time of Service: 13:00 Assessment and Plan Assessment and plan (1) Closed right hip fracture: Status: Acute (2) Goals of care, counseling/discussion: Status: Acute (3) Dyspnea on minimal exertion: Status: Acute (4) Oxygen dependent: Status: Acute (5) Hospice care: Status: Acute (6) Respiratory failure with hypoxia: Status: Chronic (7) Acute respiratory failure with hypoxia and hypercarbia: Status: Acute Subjective Subjective Patient reports: still having pain, no bowel movement, shortness of breath and fever Interval history since last seen: NOTE THAT THIS IS A HOSPICE CONSULT NOTE, NOT A PROGRESS NOTE Please see my H and P for PMSH, FH, outpatient meds, etc. Updated history: Lorne was on the hospice service over the weekend. I admitted for pain control/symptom management on 02/18. I saw him again on 02/19 to have a family meeting with Lorne, his SO and son. At that time, Lorne said he wanted to pursue hip surgery and I ordered medications, etc that would potentially have made him ready for surgery on 02/20. However, on the am of 02/20, Lorne developed a fever. Later that day, he was seen by Orthopedist Jason Prince and the anesthesia team. Surgery was postponed. Lorne was also having hypoxia and confusion throughout the day on 02/20 continuing on to 02/21. His oxygen flow was increased from 4L to 6 L. Lorne's hydromomorphone pump was stopped and he was written for prn morphine. He was transferred to the hospitalist service as of 02/20. I was consulted by Cheryl Pate NP from hospitalist service today to have another family meeting and revisit the option of going home on a hydromorphone pump and being kept comfotable there. Today's meeting included Lorne, his so Roberto, their 2 sons, Lorne's 2 siblings, his stepdaughter, and his sister in law. The consensus was easily reached that Lorne would want to go home and be kept comfortable. Plan now is for him to be discharged home on 02/22 by ambulance. Hospital bed has been ordered. He was started back on his hydromorphone pump. He had an aggressive bowel regime ordered for today as he has had no BM since admission 4 days prior. My plan is to see him at his home on 02/23. Please note that I spent more 90 minutes on family meeting, discussion with hospitalist, and with hospice team. Exam Narrative Exam Narrative: Appears stated age, sitting up in his bed, wearing his oxygen, barrel-chested due to his copd, alert and oriented x 3. VS reviewed eyes anicteric heent hearing grossly intact. mmm neck no lad or jvd lungs distant throughout all [place], no wheeze or rhonchi noted cv distant, sounds regular, normal rate abd soft, hypoactive bowel sounds, reducible umbilical hernia, no scars gu has johnson in place, draining concentrated urine ext + clubbing of fingernails, feet are cool to touch, loss of muscle mass in legs, unable to move his right leg without pain neuro moving his extremities, no facial droop, no asterixis, when anxious, right hand shakes skin no bruises or abrasions noted psych admits he has anxiety Objective Last Vital Signs Temp 99.9 F H 02/21/25 15:32 Pulse 105 H 02/21/25 15:32 Resp 19 02/21/25 15:32 BP 145/90 H 02/21/25 15:32 Pulse Ox 90 L 02/21/25 15:32 Laboratory Results - last 24 hr 02/21/25 02/21/25 06:25 13:30 WBC 15.06 H RBC 3.89 L Hgb 12.2 L Hct 37.4 L MCV 96 H MCH 31.4 MCHC 32.6 RDW 12.7 Plt Count 195 MPV 10.3 Immature Gran % 0.3 Neutrophils % 86.5 Lymphocytes % 3.9 Monocytes % 8.6 Eosinophils % 0.4 Basophils % 0.3 Nucleated RBC % 0.0 Absolute Neutrophils 13.03 H Absolute Lymphocytes 0.59 L Absolute Monocytes 1.30 H Absolute Eosinophils 0.06 Absolute Basophils 0.05 VBG pH 7.47 H VBG pCO2 55 H VBG pO2 66 VBG HCO3 40 H VBG Total CO2 36 H VBG O2 Saturation 94 VBG Base Excess 17 H Sodium 142 Potassium 3.3 L Chloride 97 L Carbon Dioxide 37.6 H Anion Gap 7.4 BUN 41 H Creatinine 1.5 H Est GFR (CKD-EPI 2020) 48.85 Glucose 157 H Calcium 9.4 Magnesium 2.0 PAWSS Have you Been Recently Intoxicated or Drunk Within the Last 30 days?: No Have you Ever Experienced Previous Episodes of Alcohol Withdrawal?: No Have you ever Experienced Withdrawal Seizures?: No Have you ever Experienced Delirium Tremens(DT)s?: No Have you ever undergone Alcohol Rehabilitation Treatment (i.e, inpt ot outpatient treatment programs)?: No Have you ever Experienced Blackouts?: No Have you ever Combined Alcohol with other Downers within the last 90 days?: No Have you ever Combined Alcohol with any other Substance of Abuse during the last 90 days?: No Positive Blood Alcohol level on Presentation? [PCS.BAL]: No Evidence of Increased Autonomic Activity (i.e. HR>120, tremor, sweating, agitation, nausea)?: No Result: 0 Time Spent with Patient Time Spent with Patient: 35-49 minutes Time was spent: preparing to see the patient(eg.review tests), obtaining and/or reviewing separately otained hiistory, ordering medications,tests, procedures, referring, communicating with other health managed care coordinator, indepentently interpreting results, counseling the patient and care coordination
[2025-02-22] MEDS: Ketorolac 15 MG/ML VIAL IVP (03:52)
[2025-02-22] MEDS: LORazepam 20 MG/10 ML VIAL IVP (03:52)
[2025-02-22] MEDS: Normal Saline Flush 10 ML SYR IVP ×2 (03:54→09:11)
[2025-02-22] MEDS: ACETAMINOPHEN 1,000 MG/100 ML BTL 400 MG IV (06:14)
[2025-02-22] MEDS: Budesonide/Formoterol 160/4.5 6 GM 60 PUFF INH IH (08:49)
[2025-02-22] MEDS: Tiotropium Bromide-Respimat 10 PUFF INH 2 PUFF IH (08:50)
[2025-02-22 09:08] VITALS: BP 127/74; PULSE 94; RESP 20; TEMP 36.8; O2SAT 90
[2025-02-22] MEDS: Folic Acid 1 MG TAB PO (09:11)
[2025-02-22] MEDS: Senna TAB 1 TAB PO (09:11)
[2025-02-22] MEDS: Polyethylene Glycol 3350 17 GM PACKET PO (09:11)
[2025-02-22] MEDS: hydroCHLOROthiazide 25 MG TAB PO (09:11)
[2025-02-22] MEDS: Thiamine 100 MG TAB PO (09:11)
[2025-02-22] MEDS: dilTIAZem 60 MG TAB PO (09:11)
[2025-02-22 09:24] VITALS: PULSE 100; RESP 12; RESP 8; O2SAT 89
[2025-02-22] MEDS: Albuterol/Ipratropium 3 ML UPD VIAL IH (09:24)
[2025-02-22 09:34] VITALS: PULSE 99
[2025-02-22 11:43] VITALS: BP 137/90; PULSE 101; RESP 12; TEMP 37.3; O2SAT 91
--- NOTE | 2025-02-22 12:19 | PDOC.CMDIS ---
Date of service: 02/22/25 Time of Service: 12:19 LACE Index Scoring Tool Questions: Length of Stay (in days): 4 - 6 Was the patient admitted via the E.D.?: Yes Comorbidities: Chronic Pulmonary Disease E.D. Visits: 1 Answers: Total Score: 10 Risk of Readmission: High Risk Care Management Discharge Plan Reason for Hospitalization: impacted comminuted R femoral neck fracture, pain Discharge Plan: Lorne will be discharged home on hospice. He will continue to be seen by hospice, and continue per his plan of care. He will transport via ambulance by [email or web address] as coordinated by CM. Patient/Family Education Needs: Review of discharge instructions, activity, limitation, and plan of care. Discuss Ask Me Tree. SDOH Health Related Social Needs: No Data to Display
--- NOTE | 2025-02-22 12:36 | DSE_ITS ---
Date of service: 02/22/25 Time of Service: 11:00 DS: Diagnosis Discharge Diagnosis (1) Pain: Status: Acute (2) Closed right hip fracture: Status: Acute (3) Fracture of right hip: Status: Acute (4) Oxygen dependent: Status: Acute (5) Dyspnea on minimal exertion: Status: Acute (6) COPD (chronic obstructive pulmonary disease): Status: Chronic (7) Heavy alcohol consumption: Status: Acute (8) Ex-smoker for more than 1 year: Status: Acute (9) Constipation: Status: Acute Discharge Plan Disposition Patient Disposition: Home W/Hospice Services Condition: Deteriorating Discharge Details Reason For Visit: impacted comminuted R femoral neck fracture, pain Admit Date/Time: 02/18/25 18:29 Admit Provider: Umm Reed Attending Provider: Bear Mock Primary Care Provider: Umm Reed Hospital Course Hospital Course: Discharge Diagnoses: * Displaced right femoral neck fracture (non-operative) * End-stage COPD with oxygen dependence * Respiratory failure with hypoxia * Acute pain due to hip fracture * Chronic opioid use * Constipation, likely opioid-induced * Goals of care: DNR/DNI Hospital Course Summary: Lorne is a 74-year-old male with end-stage COPD on hospice, who was admitted on 02/18/25 following a fall at home resulting in a comminuted, impacted fracture of the right femoral neck. Given his underlying pulmonary disease, functional limitations, and hospice enrollment, surgical intervention was considered high risk. After careful multidisciplinary discussion, and input from the palliative care, orthopedic, and hospice teams, the patient ultimately reaffirmed his decision to decline surgery and proceed with comfort-focused care.. Initial care focused on aggressive symptom management, particularly for severe pain and dyspnea. Pain was effectively managed with continuous IV hydromorphone infusion, later transitioned to a CADD pump. The patient experienced an episode of emesis during his stay and was treated symptomatically with Zofran, with abdominal imaging showing stool burden; a bowel regimen was initiated. Patient did have a large stool the evening of 02/21/25. Lorne was seen daily by the palliative care team, and on 02/22/25, was evaluated by the hospice provider for resumption of home hospice care. He was alert and in agreement with the care plan. Discharge Plan: * Discharged home on 02/22/25 via EMS transport. * Hospital bed delivered to home on the day of discharge. * Hydromorphone via CADD pump continued for pain management. * Resumption of home hospice care with close follow-up. * DNR/DNI status confirmed and documented; patient and family fully agreeable. Condition on Discharge: * Stable for discharge with adequate symptom control. * Alert, oriented, able to express wishes clearly. * Family present and in agreement with plan. Medications on Discharge: * Hydromorphone (via CADD pump) ? continuous infusion + PRN boluses (dosing per hospice provider orders) * Laxatives/stool softeners ? to manage opioid-induced constipation * Oxygen therapy ? 6L nasal cannula as needed for dyspnea * Home COPD medications ? continued per prior hospice regimen * All medication changes, discontinuation, or new managed by the hospice team Follow-Up Plan: * Home hospice team to assume full care * Hospice team will manage symptom control, medications, and equipment * Family instructed to contact hospice for any concerns, emergencies, or changes in condition * No additional outpatient appointments arranged; hospice is the primary point of contact * Family and patient aware of whom to call for symptom changes or emergencies Final Code Status: * DNR/DNI - signed COLST sent with EMS * Reaffirmed with patient and family on day of discharge Home Meds and New Rx's Prescriptions: Continued ipratropium-albuterol 0.5 mg-3 mg(2.5 mg base)/3 mL solution for nebulization 3 ml inhalation Q6H PRN albuterol sulfate 90 mcg/actuation HFA aerosol inhaler 2 puff inhalation Q6H PRN hydrochlorothiazide 25 mg tablet 25 mg PO QAM (DME) Oxygen Tank See Rx Instructions .ROUTE .MEDSUPPLY Qty: 1 Rx Instructions: As directed,On cont O2 at 3L - up to 4L when on a mask. albuterol sulfate 2.5 mg /3 mL (0.083 %) solution for nebulization 2.5 mg inhalation Q6H clobetasol 0.05 % cream 1 applic topical DAILY PRN diltiazem HCl 30 mg tablet 60 mg PO TID Dulera 200-5 mcg/actuation HFA aerosol inhaler 2 puff inhalation BID Qty: 13 0RF Spiriva Respimat 2.5 mcg/actuation mist 2 inh inhalation DAILY Qty: 4 0RF lorazepam 1 mg tablet 1 mg PO Q4H PRN (Reason: anxiety, dyspnea, nausea) Qty: 30 5RF Rx Instructions: hospice morphine concentrate 100 mg/5 mL (20 mg/mL) solution See Rx Instructions PO Q1H PRN MDD 300 mg Qty: 30 0RF Rx Instructions: 0.25-1.0 ml orally every 1 hour, as needed sennosides [senna] 8.6 mg tablet 8.6 mg PO BID Qty: 60 5RF Rx Instructions: hospice use in addition to miralax hold for diarrhea polyethylene glycol 3350 [Miralax] 17 gram/dose powder 17 g PO DAILY Qty: 476 3RF Rx Instructions: hospice citalopram 40 mg tablet 40 mg PO ONCE Qty: 30 5RF Rx Instructions: hospice hydromorphone 2 mg/mL solution 0.1 mg subcut Q1H MDD 15 mg Qty: 100 0RF Rx Instructions: HOSPICE CADD PUMP basal rate: 0.1 mg/hr Bolus: 0.1 mg q15 m PRN (DME) Aerochamber Plus Flow-Vu 1 EACH spacer 1 ea Miscellaneous DIRECTED Qty: 1 0RF Discharge Instructions Additional Instructions: Home hospice team to assume full care * Hospice team will manage symptom control, medications, and equipment * Family instructed to contact hospice for any concerns, emergencies, or changes in condition * No additional outpatient appointments arranged; hospice is the primary point of contact * Family and patient aware of whom to call for symptom changes or emergencies Stand Alone Forms: Nursing Discharge Form Activity:: Bed rest Equipment/Supplies:: No Equipment Needed Diet:: As Tolerated Discharge Orders Discharge Orders: Discharge Order (Routine); Ordered 02/22/25 Ordered By: Cheryl Pate DS: Summary Summary Time spent discussing smoking cessation with patient: more than 10 minutes Time Spent with Patient providing and/or coordinating discharge services: Greater than 30 minutes Status at Discharge Functional status at discharge: bed bound Overall status at discharge: patient is not back to baseline Mental Status: mental status grossly normal Speech and Movement: speech and movement normal Mood: congruent mood Affect: normal affect Quality:SDOH Health Related Social Needs: No Data to Display Exam Const Orientation: alert, awake, oriented to person, oriented to place and confused HENMT Head: normal to inspection Ears: external ears normal General nose exam: external nose normal Mouth: moist mucous membranes Eyes General: appearance normal, both eyes and all related structures Neck Neck: normal visual inspection Resp Effort & Inspection: normal respiratory effort and able to speak in complete sentences Cardio Rate: regular rate Skin General skin exam: no rashes or lesions noted Neuro General: patient alert and patient oriented x3 Extrem General: capillary refill normal Psych Mental Status: mental status grossly normal Speech and Movement: speech and movement normal Mood: congruent mood Affect: normal affect DS: Data Vitals/I&O Vitals and I&O: Vital Signs Temperature 37.3 C 02/22/25 11:43 Temperature Source Temporal Artery Scan 02/22/25 11:43 Pulse 101 H 02/22/25 11:43 Pulse Rhythm Irregular 02/18/25 21:45 Pulse 116 H 02/18/25 17:50 Respiratory Rate 12 02/22/25 11:43 Respiratory Effort Labored 02/18/25 21:45 Respiratory Depth Shallow 02/18/25 21:45 Blood Pressure 137/90 02/22/25 11:43 Blood Pressure Mean 105 02/22/25 11:43 Blood Pressure Position Supine 02/18/25 14:42 Pulse Oximetry 91 L 02/22/25 11:43 Oxygen Delivery Method Nasal Cannula 02/22/25 11:43 Oxygen Flow Rate 5 02/22/25 11:43 Pain Level 0 02/22/25 11:43 Comment RN in room 02/22/25 11:43 Intake & Output 02/21/25 02/22/25 02/22/25 23:59 11:59 23:59 Intake Total 250.6 / 270.6 101.220 / 101.220 Output Total 575 / 1725 300 / 300 Balance -324.4 / -1454.4 -198.780 / -198.780 Intake: IV 250.6 / 270.6 101.220 / 101.220 Output: Urine 575 / 1725 300 / 300 Other: Urine Color Dark Cony Dark Cony Urine Appearance Cloudy Sediment Sediment Mucous Threads Urine Odor None Comment Decreased urinary output has been noted, pt is on hospice. Data Completed and Pending Labs on day of discharge: Labs from last 24 hours 02/21/25 13:30: VBG pH 7.47 H, VBG pCO2 55 H, VBG pO2 66, VBG HCO3 40 H, VBG Total CO2 36 H, VBG O2 Saturation 94, VBG Base Excess 17 H Preliminary micro results at discharge 02/20/25 06:50 Blood Blood Culture - Preliminary NO GROWTH 48 HOURS 02/20/25 06:30 Blood Blood Culture - Preliminary NO GROWTH 48 HOURS PFSH All Active Problems (Updated 02/22/25 @ 12:39 by Cheryl Pate NP) Constipation (Acute) Acute respiratory failure with hypoxia and hypercarbia (Acute) Displaced fracture of right femoral neck (Acute) Ex-smoker for more than 1 year (Acute) Heavy alcohol consumption (Acute) Fracture of right hip (Acute) Pain (Acute) Closed right hip fracture (Acute) impacted comminuted right femoral neck fracture Goals of care, counseling/discussion (Acute) Dyspnea on minimal exertion (Acute) Oxygen dependent (Acute) Hospice care (Acute) Deviated septum (Acute) Respiratory failure with hypoxia (Chronic) Pulmonary nodules (Acute) COPD (chronic obstructive pulmonary disease) (Chronic) Tinnitus, bilateral (Acute) Sensorineural hearing loss (SNHL), bilateral (Acute) Intrinsic (allergic) eczema (Acute) Essential hypertension (Acute) Spontaneous pneumothorax (Acute) Medical History Solitary pulmonary nodule Social History Smoking/Tobacco Use Status: Former Tobacco Use Quit Date: 03/19/16 Tobacco: How many years used: 45 Second Hand Exposure: Yes (not currently, history of) Smoking risk assessment performed?: Yes Alcohol Intake: current Alcohol Intake frequency: 0-2 drinks per day Alcohol type: wine Drug use: Never Substance use type: does not use Caregiver/Support person: Yes Household members: significant other Housing: house Number of Children: 3 Communication Needs: Hard of Hearing Do you need help understanding health information?: Rarely 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 Pets and animals: No (favorite cat recently (winter 2024)) Do you think of yourself as: straight/heterosexual Current gender identity: male What is your relationship status?: living with partner Panel score (0-1 are the most socially isolated patients): 1 What type of physical activity do you participate in: none Special rosie needs: No Agree to transfusion: No Seatbelt use: always Working smoke detector in home: Yes Fire extinguisher in home: Yes Do you feel safe at home: Yes Do you feel safe in your relationship?: Yes Additional Social history: Lorne and Roberto, his SO, have been together for decades. They have children together. She works out of the home most of the time. Most of the time, Lorne stays on the second floor. he goes down approx once per 5 days to have his hair washed. He gets very dyspneic with any activity. He cannot walk from his bed to the bathroom without stopping to rest. He struggles to get back up the stairs due to his dyspnea, even with oxygen in place. He and Roberto are considering getting ; he is afraid of how it will affect his [employer] benefits if they . He is committed to her and he to him. Time Spent with Patient Time Spent with Patient: 45-69 minutes Time was spent: preparing to see the patient(eg.review tests), ordering medications,tests, procedures, referring, communicating with other health home care liaison, indepentently interpreting results, counseling the patient and care coordination
--- NOTE | 2025-02-22 14:31 | DSE_ITS ---
Date of service: 02/22/25 Time of Service: 14:31 DS: Diagnosis Discharge Diagnosis (1) Closed right hip fracture: Status: Acute (2) Fracture of right hip: Status: Acute (3) Oxygen dependent: Status: Acute (4) Dyspnea on minimal exertion: Status: Acute (5) COPD (chronic obstructive pulmonary disease): Status: Chronic (6) Heavy alcohol consumption: Status: Acute (7) Ex-smoker for more than 1 year: Status: Acute (8) Constipation: Status: Acute Discharge Plan Disposition Patient Disposition: Home W/Hospice Services Condition: Deteriorating Discharge Details Reason For Visit: impacted comminuted R femoral neck fracture, pain Admit Date/Time: 02/18/25 18:29 Admit Provider: Umm Reed Attending Provider: Bear Mock Primary Care Provider: Umm Reed Hospital Course Hospital Course: Discharge Diagnoses: * Displaced right femoral neck fracture (non-operative) * End-stage COPD with oxygen dependence * Respiratory failure with hypoxia * Acute pain due to hip fracture * Chronic opioid use * Constipation, likely opioid-induced * Goals of care: DNR/DNI Hospital Course Summary: Lorne is a 74-year-old male with end-stage COPD on hospice, who was admitted on 02/18/25 following a fall at home resulting in a comminuted, impacted fracture of the right femoral neck. Given his underlying pulmonary disease, functional limitations, and hospice enrollment, surgical intervention was considered high risk. After careful multidisciplinary discussion, and input from the palliative care, orthopedic, and hospice teams, the patient ultimately reaffirmed his decision to decline surgery and proceed with comfort-focused care.. Initial care focused on aggressive symptom management, particularly for severe pain and dyspnea. Pain was effectively managed with continuous IV hydromorphone infusion, later transitioned to a CADD pump. The patient experienced an episode of emesis during his stay and was treated symptomatically with Zofran, with abdominal imaging showing stool burden; a bowel regimen was initiated. Patient did have a large stool the evening of 02/21/25. Lorne was seen daily by the palliative care team, and on 02/22/25, was evaluated by the hospice provider for resumption of home hospice care. He was alert and in agreement with the care plan. Discharge Plan: * Discharged home on 02/22/25 via EMS transport. * Hospital bed delivered to home on the day of discharge. * Hydromorphone via CADD pump continued for pain management. * Resumption of home hospice care with close follow-up. * DNR/DNI status confirmed and documented; patient and family fully agreeable. Condition on Discharge: * Stable for discharge with adequate symptom control. * Alert, oriented, able to express wishes clearly. * Family present and in agreement with plan. Medications on Discharge: * Hydromorphone (via CADD pump) ? continuous infusion + PRN boluses (dosing per hospice provider orders) * Laxatives/stool softeners ? to manage opioid-induced constipation * Oxygen therapy ? 6L nasal cannula as needed for dyspnea * Home COPD medications ? continued per prior hospice regimen * All medication changes, discontinuation, or new managed by the hospice team Follow-Up Plan: * Home hospice team to assume full care * Hospice team will manage symptom control, medications, and equipment * Family instructed to contact hospice for any concerns, emergencies, or changes in condition * No additional outpatient appointments arranged; hospice is the primary point of contact * Family and patient aware of whom to call for symptom changes or emergencies Final Code Status: * DNR/DNI - signed COLST sent with EMS * Reaffirmed with patient and family on day of discharge Home Meds and New Rx's Prescriptions: Continued ipratropium-albuterol 0.5 mg-3 mg(2.5 mg base)/3 mL solution for nebulization 3 ml inhalation Q6H PRN albuterol sulfate 90 mcg/actuation HFA aerosol inhaler 2 puff inhalation Q6H PRN hydrochlorothiazide 25 mg tablet 25 mg PO QAM (DME) Oxygen Tank See Rx Instructions .ROUTE .MEDSUPPLY Qty: 1 Rx Instructions: As directed,On cont O2 at 3L - up to 4L when on a mask. albuterol sulfate 2.5 mg /3 mL (0.083 %) solution for nebulization 2.5 mg inhalation Q6H clobetasol 0.05 % cream 1 applic topical DAILY PRN diltiazem HCl 30 mg tablet 60 mg PO TID Dulera 200-5 mcg/actuation HFA aerosol inhaler 2 puff inhalation BID Qty: 13 0RF Spiriva Respimat 2.5 mcg/actuation mist 2 inh inhalation DAILY Qty: 4 0RF lorazepam 1 mg tablet 1 mg PO Q4H PRN (Reason: anxiety, dyspnea, nausea) Qty: 30 5RF Rx Instructions: hospice morphine concentrate 100 mg/5 mL (20 mg/mL) solution See Rx Instructions PO Q1H PRN MDD 300 mg Qty: 30 0RF Rx Instructions: 0.25-1.0 ml orally every 1 hour, as needed sennosides [senna] 8.6 mg tablet 8.6 mg PO BID Qty: 60 5RF Rx Instructions: hospice use in addition to miralax hold for diarrhea polyethylene glycol 3350 [Miralax] 17 gram/dose powder 17 g PO DAILY Qty: 476 3RF Rx Instructions: hospice citalopram 40 mg tablet 40 mg PO ONCE Qty: 30 5RF Rx Instructions: hospice hydromorphone 2 mg/mL solution 0.1 mg subcut Q1H MDD 15 mg Qty: 100 0RF Rx Instructions: HOSPICE CADD PUMP basal rate: 0.1 mg/hr Bolus: 0.1 mg q15 m PRN (DME) Aerochamber Plus Flow-Vu 1 EACH spacer 1 ea Miscellaneous DIRECTED Qty: 1 0RF Discharge Instructions Additional Instructions: Home hospice team to assume full care * Hospice team will manage symptom control, medications, and equipment * Family instructed to contact hospice for any concerns, emergencies, or changes in condition * No additional outpatient appointments arranged; hospice is the primary point of contact * Family and patient aware of whom to call for symptom changes or emergencies Stand Alone Forms: Nursing Discharge Form Activity:: Bed rest Equipment/Supplies:: No Equipment Needed Diet:: As Tolerated Discharge Orders Discharge Orders: Discharge Order (Routine); Ordered 02/22/25 Ordered By: Cheryl Pate DS: Summary Quality:[facility] Health Related Social Needs: No Data to Display DS: Data Vitals/I&O Vitals and I&O: Vital Signs Temperature 37.3 C 02/22/25 11:43 Temperature Source Temporal Artery Scan 02/22/25 11:43 Pulse 101 H 02/22/25 11:43 Pulse Rhythm Irregular 02/18/25 21:45 Pulse 116 H 02/18/25 17:50 Respiratory Rate 12 02/22/25 11:43 Respiratory Effort Labored 02/18/25 21:45 Respiratory Depth Shallow 02/18/25 21:45 Blood Pressure 137/90 02/22/25 11:43 Blood Pressure Mean 105 02/22/25 11:43 Blood Pressure Position Supine 02/18/25 14:42 Pulse Oximetry 91 L 02/22/25 11:43 Oxygen Delivery Method Nasal Cannula 02/22/25 11:43 Oxygen Flow Rate 5 02/22/25 11:43 Pain Level 0 02/22/25 13:12 Comment RN in room 02/22/25 11:43 Intake & Output 02/21/25 02/22/25 02/22/25 23:59 11:59 23:59 Intake Total 250.6 / 270.6 101.220 / 101.773 0.553 / 101.773 Output Total 575 / 1725 300 / 300 Balance -324.4 / -1454.4 -198.780 / -198.227 0.553 / -198.227 Intake: IV 250.6 / 270.6 101.220 / 101.773 0.553 / 101.773 Output: Urine 575 / 1725 300 / 300 Other: Urine Color Dark Cony Dark Cony Urine Appearance Cloudy Sediment Sediment Mucous Threads Urine Odor None Comment Decreased urinary output has been noted, pt is on hospice. Data Completed and Pending Labs on day of discharge: Preliminary micro results at discharge 02/20/25 06:50 Blood Blood Culture - Preliminary NO GROWTH 48 HOURS 02/20/25 06:30 Blood Blood Culture - Preliminary NO GROWTH 48 HOURS [facility] All Active Problems (Updated 02/22/25 @ 14:31 by Cheryl Pate NP) Constipation (Acute) Acute respiratory failure with hypoxia and hypercarbia (Acute) Displaced fracture of right femoral neck (Acute) Ex-smoker for more than 1 year (Acute) Heavy alcohol consumption (Acute) Fracture of right hip (Acute) Closed right hip fracture (Acute) impacted comminuted right femoral neck fracture Goals of care, counseling/discussion (Acute) Dyspnea on minimal exertion (Acute) Oxygen dependent (Acute) Hospice care (Acute) Deviated septum (Acute) Respiratory failure with hypoxia (Chronic) Pulmonary nodules (Acute) COPD (chronic obstructive pulmonary disease) (Chronic) Tinnitus, bilateral (Acute) Sensorineural hearing loss (SNHL), bilateral (Acute) Intrinsic (allergic) eczema (Acute) Essential hypertension (Acute) Spontaneous pneumothorax (Acute) Medical History Solitary pulmonary nodule Social History Smoking/Tobacco Use Status: Former Tobacco Use Quit Date: 03/19/16 Tobacco: How many years used: 45 Second Hand Exposure: Yes (not currently, history of) Smoking risk assessment performed?: Yes Alcohol Intake: current Alcohol Intake frequency: 0-2 drinks per day Alcohol type: wine Drug use: Never Substance use type: does not use Caregiver/Support person: Yes Household members: significant other Housing: house Number of Children: 3 Communication Needs: Hard of Hearing Do you need help understanding health information?: Rarely 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 Pets and animals: No (favorite cat recently (winter 2024)) Do you think of yourself as: straight/heterosexual Current gender identity: male What is your relationship status?: living with partner Panel score (0-1 are the most socially isolated patients): 1 What type of physical activity do you participate in: none Special rosie needs: No Agree to transfusion: No Seatbelt use: always Working smoke detector in home: Yes Fire extinguisher in home: Yes Do you feel safe at home: Yes Do you feel safe in your relationship?: Yes Additional Social history: Lorne and Roberto, his SO, have been together for decades. They have children together. She works out of the home most of the time. Most of the time, Lorne stays on the second floor. he goes down approx once per 5 days to have his hair washed. He gets very dyspneic with any activity. He cannot walk from his bed to the bathroom without stopping to rest. He struggles to get back up the stairs due to his dyspnea, even with oxygen in place. He and Roberto are considering getting ; he is afraid of how it will affect his [employer] benefits if they . He is committed to her and he to him.
== END 2025-02-22 14:06 | disposition hospice, home (50) | DRG 535 ==
LOC: ER 16:50 → MS 21:14
PROVIDERS: Admitting Provider Family Medicine; Emergency Provider Emergency Medicine; PCP Family Medicine; Responsible Provider Nurse Practitioner Family; Visit Provider Hospitalist
DX: S72.011A Unspecified intracapsular fracture of right femur, initial encounter for closed fracture (principal); J96.02 Acute respiratory failure with hypercapnia; J96.21 Acute and chronic respiratory failure with hypoxia; R18.8 Other ascites; Z51.5 Encounter for palliative care; W19.XXXA Unspecified fall, initial encounter; K59.00 Constipation, unspecified; Z99.81 Dependence on supplemental oxygen; G89.11 Acute pain due to trauma; M25.551 Pain in right hip; R91.8 Other nonspecific abnormal finding of lung field; J44.9 Chronic obstructive pulmonary disease, unspecified; H90.3 Sensorineural hearing loss, bilateral; Z87.891 Personal history of nicotine dependence; Z79.891 Long term (current) use of opiate analgesic; F10.90 Alcohol use, unspecified, uncomplicated; R41.0 Disorientation, unspecified; R50.9 Fever, unspecified; R11.10 Vomiting, unspecified; I50.9 Heart failure, unspecified; I11.0 Hypertensive heart disease with heart failure
CPT/HCPCS: 00123; 36415; 51702; 73552; 80048; 80053; 82805; 87040; 94640; 96372; 96374; 99222; 99285; 71045; 72170; 74018; 83735; 85014; 85018; 85025; 94664; 94667; 94668; 94760; 99223; 99233; 99239; J0131; J0690; J1171; J1885; J1938; J2060; J2270; J2405; J3490; J7620